=== PATIENT | male | born 1950 | race Caucasian/White ===

== ENCOUNTER → 2016-03-23 | Outpatient (CLI) | payer BC ==
[~2016-03-23] MED LIST: AVP150 PO; HYDR25TA5 PO
[2016-03-23 12:36] LABS: ESTIMATED AVERAGE GLUCOSE 137 mg/dl; HA1C FLAG Normal (Normal)
== END | disposition home or self-care (01) ==
LOC: C.LABBFT 09:59
PROVIDERS: ATTEND Internal Medicine
DX: E11.9 Type 2 diabetes mellitus without complications (principal)

== ENCOUNTER → 2017-03-30 | Outpatient (CLI) | payer OTHER ==
[2017-03-30 10:35] LABS: BASO % 0.2 %; BASO ABS # 0.01 K/uL (0-0.2); EOS % 3.2 %; HEMOGLOBIN 14.7 g/dL (14.0-18.0); IG# 0.01 K/uL (0.00-0.02); LYMPH % 41.2 %; LYMPH ABS # 2.56 K/uL (1.2-3.4); MEAN CELL VOLUME 88.1 fL (80-100); MEAN CORPUSCULAR HEMOGLOBIN 30.8 pg (25-34); MEAN PLATELET VOLUME 9.5 fL (7.4-10.4); MONO % 5.6 %; MONO ABS # 0.35 K/uL (0.11-0.59); NEUT % 49.6 %; NEUT ABS # 3.09 K/uL (1.4-6.5); PLATELET COUNT 189 K/uL (130-400); RED CELL DISTRIBUTION WIDTH CV 13.3 % (11.5-14.5); RED CELL DISTRIBUTION WIDTH SD 42.7 fL (36.4-46.3); WHITE BLOOD COUNT 6.22 K/uL (4.8-10.8)
[2017-03-30 11:18] LABS: BLOOD UREA NITROGEN 16 mg/dl (7-18); CALCIUM 8.9 mg/dl (8.5-10.1); CARBON DIOXIDE 26 mmol/L (21-32); CHOLESTEROL 125 mg/dl (0-200); CREATININE 0.92 mg/dl (0.60-1.40); GLUCOSE 135 mg/dl (70-99); POTASSIUM 3.9 mmol/L (3.5-5.1); SODIUM 139 mmol/L (136-145)
[2017-03-30 11:30] LABS: LDL CHOLESTEROL CALCULATED 60 mg/dl
== END | disposition home or self-care (01) ==
LOC: C.LAB1850 09:48
PROVIDERS: ATTEND Internal Medicine
DX: E11.9 Type 2 diabetes mellitus without complications (principal); I10 Essential (primary) hypertension

== ENCOUNTER → 2017-05-08 | Outpatient (CLI) | payer OTHER ==
--- NOTE | 2017-05-08 16:26 | DIAGNOSTIC IMAGING REPORT ---
MRI OF THE LUMBAR SPINE WITHOUT IV CONTRAST CLINICAL HISTORY: Chronic low back pain. Lumbar radiculopathy. COMPARISON STUDY: No priors. TECHNIQUE: MRI of the lumbar spine is performed utilizing various T1 and T2-weighted sequences in the axial and sagittal planes. IV contrast was not administered for this examination. FINDINGS: Lumbar spine: Vertebral body height and alignment are maintained throughout the lumbar spine. There is mild hyperlordosis. Small anterior osteophytes are seen throughout. The transverse and spinous processes are intact as visualized. Hemangiomas are seen in the bodies of L1, L2, and S1. No destructive osseous lesion is seen. Minimal endplate edema is seen at L5-S1. There is no evidence of spondylolysis. Intervertebral discs: Degenerative disc desiccation is seen throughout the lumbar spine. Only mild loss of height is seen at L3-L4 and L5-S1. Spinal cord: The partially visualized spinal cord is normal in morphology and signal intensity. The conus medullaris terminates at the level of L1. The nerve roots of the cauda equina are normal in morphology. These are tethered at the L3-L4 level. L1-L2: There is a small posterior disc bulge. There is no significant acquired compromise of the central canal at this level. There is bilateral subarticular stenosis. This may abut the exiting left L1 and the transiting bilateral L2 nerve roots. The neural foramina are patent. Facet arthropathy is of no consequence. L2-L3: There is broad-based posterior disc bulge with annular fissure. There is mild central canal stenosis at this level which is largely on a congenital basis. The minimum AP canal diameter measures 8 mm. There is bilateral subarticular stenosis. This may abut the exiting bilateral L2 and the transiting bilateral L3 nerve roots. The neural foramina are patent. Facet arthropathy is of no consequence. L3-L4: There is broad-based posterior disc bulge with annular fissure. In conjunction with hypertrophy of the ligamentum flavum, there is at least moderate central canal stenosis. The minimum AP canal diameter measures 6 mm. There is severe bilateral subarticular stenosis. The disc bulge likely impinges on the exiting bilateral L3 and the transiting bilateral L4 nerve roots. Facet arthropathy causes mild left greater than right neural foraminal stenosis. L4-L5: There is minimal posterior disc bulge. There is no significant acquired compromise of the central canal. There is bilateral subarticular stenosis. The disc bulge likely abuts the exiting right L4 and the transiting bilateral L5 nerve roots. Facet arthropathy causes mild left greater than right neural foraminal stenosis. L5-S1: There is a broad-based disc bulge eccentric to the left with annular fissure. This causes severe left-sided subarticular stenosis and impinges on the exiting left L5 nerve root. This also impinges on the transiting left S1 nerve root. Facet arthropathy is of no consequence. The neural foramina are patent. Mild facet joint effusions are identified. Sacrum: The visualized sacrum appears intact. Soft tissues: The paraspinous soft tissues are within normal limits. The partially imaged retroperitoneal structures are grossly normal but incompletely evaluated. IMPRESSION: 1. A large disc bulge eccentric to the left at L5-S1 impinges on the exiting left L5 and the transiting left S1 nerve roots. 2. There is at least moderate acquired compromise of the central canal at L3-L4 secondary to a posterior disc bulge. 3. Moderate lumbosacral spondylosis at additional levels, as above. See discussion for detailed level by level analysis. 4. No destructive bony process is identified. Dictated: 05/08/2017 3:24 PM Transcribed: 05/08/2017 4:26 PM [email or web address] Electronically signed by: Dawood Oakley M.D. 05/08/2017 4:27 PM Dictated Date/Time: 05/08/2017 3:24 PM
== END | disposition home or self-care (01) ==
LOC: C.MRIBC 14:07
PROVIDERS: ATTEND Pain Medicine Interventional Pain Medicine
DX: M51.36 Other intervertebral disc degeneration, lumbar region (principal); M51.27 Other intervertebral disc displacement, lumbosacral region; M47.817 Spondylosis without myelopathy or radiculopathy, lumbosacral region

== ENCOUNTER → 2017-07-21 | Outpatient (CLI) | payer BC ==
[2017-07-21 13:42] LABS: HEMOGLOBIN A1C 7.1 % (4.5-5.6)
== END | disposition home or self-care (01) ==
LOC: C.LAB1850 12:11
PROVIDERS: ATTEND Internal Medicine
DX: I10 Essential (primary) hypertension (principal)

== ENCOUNTER 2021-05-05 08:02 | Inpatient (IN) ==
--- NOTE | 2021-04-16 16:18 | PAT Medication Instructions ---
Medication Instructions Date of Service April 16, 2021 Home Medications Medication Instructions Recorded metformin 500 mg tablet,extended 1,000 mg PO BID #360 tab 12/29/20 release 24 hr jjlgequgilzu-cljpzksx-jtojrs tablet 1 tab PO QAM metformin 500 mg tablet,extended release 24 hr 1,000 mg PO BID atorvastatin 20 mg tablet 20 mg PO QAM empagliflozin 25 mg tablet 25 mg PO QAM hydrochlorothiazide 25 mg tablet 25 mg PO QAM irbesartan 300 mg tablet 300 mg PO QAM meloxicam 15 mg tablet 15 mg PO QAM tamsulosin 0.4 mg capsule 0.4 mg PO QAM ASK your surgeon for instructions meloxicam 15 mg tablet 15 mg PO QAM STOP taking 2 weeks before surgery potpnnugqpza-xpvzbmhk-eflnpy tablet 1 tab PO QAM DO NOT take the morning of surgery metformin 500 mg tablet,extended release 24 hr 1,000 mg PO BID empagliflozin 25 mg tablet 25 mg PO QAM hydrochlorothiazide 25 mg tablet 25 mg PO QAM irbesartan 300 mg tablet 300 mg PO QAM Take morning of surgery With a small sip of water, OTHERWISE NOTHING TO EAT OR DRINK AFTER MIDNIGHT: atorvastatin 20 mg tablet 20 mg PO QAM tamsulosin 0.4 mg capsule 0.4 mg PO QAM Take evening before surgery metformin 500 mg tablet,extended release 24 hr 1,000 mg PO BID Other Notes If you have any questions please call us at [phone] or [phone] or [phone] or [phone]
--- NOTE | 2021-04-21 11:20 | Anesthesiology Consultation ---
Date of Service April 21, 2021 Assessment & Plan (1) Encounter for pre-operative examination: Chart Review Chart Review: Acceptable Risk for Surgery (pending preop Covid testing results and surgeon ordered PCP clearance ) and Patient seen in Pre Admission Testing - Awaiting surgeon ordered PCP clearance (seen by PCP 04/20/21) (will fax preop testing to PCP for continuity of care) - Check BSG AM DOS Per PAT appt on 04/21/21, patient denies any recent travel or large group activities. No known Covid positive exposures or Covid related symptoms. Pt states he had positive home test approximately 1-2 months ago- had mild cold symptoms. Pt is vaccinated for Covid. Preop Covid testing scheduled 05/03/21= w ill await results. If preop Covid testing results positive- patient will need rescheduled. Educated on importance of self quarantining, social distancing and wearing mask in public for the patient one week prior to surgery and after Covid testing done Teaching & Discussion Pre-Anesthesia Teaching/Discussion Notes: Instructed NPO after midnight before surgery,except medications with 15 cc of water. Medication instructions provided according to the PAT guidelines. History Surgery Operation Date: 05/05/21 10:05 Proposed Procedures p L3-S1 Revision Decompression Fusion Spinal Cord Monitoring - Herman Torres, Height/Weight Height: 5 ft 9 in Weight: 123.9 kg Allergies Allergy/AdvReac Type Severity Reaction Status Date / Time ketamine AdvReac Intermediate anger Verified 04/20/21 11:04 issues Medications Home Medications Medication Instructions Recorded Confirmed Last Taken metformin 500 mg tablet,extended 1,000 mg PO BID #360 tab 12/29/20 04/20/21 Unknown release 24 hr atorvastatin 20 mg tablet 20 mg PO QAM 04/16/21 04/20/21 Unknown empagliflozin 25 mg tablet 25 mg PO QAM 04/16/21 04/20/21 Unknown hydrochlorothiazide 25 mg tablet 25 mg PO QAM 04/16/21 04/20/21 Unknown irbesartan 300 mg tablet 300 mg PO QAM 04/16/21 04/20/21 Unknown meloxicam 15 mg tablet 15 mg PO QAM 04/16/21 04/20/21 Unknown tamsulosin 0.4 mg capsule 0.4 mg PO QAM 04/16/21 04/20/21 Unknown liraglutide 0.6 mg/0.1 mL (18 mg/3 See Rx Instructions SUBCUT 04/20/21 04/20/21 Unknown mL) subcutaneous pen injector .COMPLEX #9 ml pen needle, diabetic 32 gauge x #100 ea 04/20/21 04/20/21 Unknown /" (Novofine 32) Past Medical History Medical History BPH (benign prostatic hyperplasia) Hypertriglyceridemia Lumbar back pain Metabolic syndrome Obesity, morbid, BMI 40.0-49.9 Primary hypertension Severe obstructive sleep apnea Wears BiPAP every night Type 2 diabetes mellitus with hyperglycemia, without long-term current use of insulin Does not check glucose Exercise / Class Metabolic Activity II 4-5 Yardwork/Stairs/Walk up hill (one flight of stairs - no chest pain or SOB ) Past Family History Family History Other No family history of adverse response to anesthesia Denies family history of Ovarian cancer Prostate cancer Breast cancer Lung cancer Colorectal cancer Past Surgical History Surgical History H/O elbow surgery RT H/O hernia repair H/O neck surgery HARDWARD H/O shoulder surgery RT/LEFT History of back surgery ? DETAILS History of colonoscopy History of tonsillectomy History of total knee replacement RT/LEFT Past Anesthesia History No Hx of Anesthesia Complications and No Family Hx of Anesthesia Complications History of PONV No Hx of PONV and No Hx of Motion Sickness Social History Smoking Status: Current some day smoker tobacco type: cigars (currently- occasionally ) Do You Dip or Chew Tobacco: No Smoking End Date: Quit smoking cigarettes "years ago" Hx Alcohol Use: Yes Alcohol type: hard liquor alcohol intake frequency: a few times a month Hx Substance Use: No substance use type: does not use Review of Systems Patient denies chest pain, shortness of breath, dyspnea on exertion, reflux, cou gh, wheezing, palpitations. No hx of seizures, stroke, NM. No hx of blood clots or blood transfusions Physical Exam Vital Signs VITALS BP 112/67 P 69 TEMP 98.4 SP02 97% RESP 16 Constitutional no acute distress ENMT Mouth: no TMJ clicking Thyromental Distance: > or= 3.5 Finger Breadths (4.0) Mallampati Class: I (smaller airway ) Mouth / Teeth: 1. Missing 2. Missing 3. Missing Missing most teeth/broken Neck + facial hair (advised patient to trim/shave [place] ); neck extension not limited Respiratory normal respiratory effort; no respiratory distress Auscultation: lungs clear to auscultation bilaterally; no wheezes Cardiovascular Rate/Rhythm: regular rate and regular rhythm Heart Sounds: no murmur Vessels: no carotid bruit Musculoskeletal Spine: + pain with cervical ROM (mild stiffness ) Extremities: extremities normal to inspection Psychiatric Orientation: alert Lab Results Anesthesia Preop Results Results Anesthesia Widget: WBC 7.07 K/uL (4.8-10.8) 04/21/21 Hgb 16.2 g/dL (14.0-18.0) 04/21/21 Hct 47.1 % (42-52) 04/21/21 Plt 213 K/uL (130-400) 04/21/21 Na 136 mmol/L (136-145) 04/21/21 K 3.7 mmol/L (3.5-5.1) 04/21/21 Cl 101 mmol/L (98-107) 04/21/21 CO2 27 mmol/L (21-32) 04/21/21 BUN 21 mg/dl (6-23) 04/21/21 Creat 0.88 mg/dl (0.6-1.4) 04/21/21 Glucose Level 132 mg/dl (70-99(Fasting)) H 04/21/21 PT 10.9 Seconds (9.0-12.0) 04/21/21 PTT 29.8 Seconds (21.0-31.0) 04/21/21 INR 1.1 (0.9-1.1) 04/21/21 HA1c 6.8 % (4.5-5.6) H 04/21/21 Urine Color Yellow 04/21/21 Urine Appearance Clear (Clear) 04/21/21 Urine pH 8.0 (4.5-7.5) H 04/21/21 Urine Specific [place] 1.023 (1.000-1.030) 04/21/21 Urine Protein Negative (Negative) 04/21/21 Urine Glucose (UA) 3+ (Negative) H 04/21/21 Urine Ketones Negative (Negative) 04/21/21 Urine Blood Negative (Negative) 04/21/21 Urine Nitrite Negative (Negative) 04/21/21 Urine Bilirubin Negative (Negative) 04/21/21 Urine Urobilinogen Negative (Negative) 04/21/21 Urine Leukocyte Esterase Negative (Negative) 04/21/21 Blood Type AB Positive 04/21/21 Antibody Screen NEGATIVE 04/21/21 Testing Electrocardiogram Date: 04/21/21 Sinus rhythm with first-degree AV block at 70 bpm. Possible inferior infarct, age undetermined. When compared to EKG from 07/21/2015PR interval has increased. Chest X-Ray Date: 04/21/21 Findings: + NAD
[~2021-05-05 08:02] MED LIST changes: +ACETAMINOPHEN 500 MG TAB PO SCH; -AVP150 PO; +CeleBREX 200 MG CAP PO SCH; +GABAPENTIN 300 MG CAP PO SCH; -HYDR25TA5 PO; +LR 15ML/HR IV SCH
[2021-05-05] MEDS ORDERED: fentaNYL citrate 100 MCG/2 ML VIAL ONE (08:31)
[2021-05-05] MEDS ORDERED: MIDAZOLAM HCL 1 MG/ML 2ML VIAL ONE (08:31)
--- NOTE | 2021-05-05 10:00 | History & Physical Bridge Note ---
Date of Service May 05, 2021 History & Physical Bridge Note I have examined the patient, reviewed the History & Physical and in the interval since the performance of the History & Physical I have noted the following changes of clinical significance: no changes noted
--- NOTE | 2021-05-05 10:01 | History & Physical Report ---
Date of Service May 05, 2021 Assessment & Plan (1) Neurogenic claudication due to lumbar spinal stenosis: Plan: L3-S1 revision decompression and fusion History of Present Illness Chief Complaint: Back and bilateral leg pain Primary Care Provider: Fara Youssef MD This is a 71-year-old male who presents with current persistent back and bilateral leg pain. Failing course of nonoperative care is here for surgical invention. Allergies Allergy/AdvReac Type Severity Reaction Status Date / Time ketamine AdvReac Intermediate anger Verified 05/05/21 08:15 issues Home Medications Medication Instructions Recorded Confirmed Type metformin 500 mg tablet,extended 1,000 mg PO BID #360 tab 12/29/20 05/05/21 Rx release 24 hr atorvastatin 20 mg tablet 20 mg PO QAM 04/16/21 05/05/21 History empagliflozin 25 mg tablet 25 mg PO QAM 04/16/21 05/05/21 History hydrochlorothiazide 25 mg tablet 25 mg PO QAM 04/16/21 05/05/21 History irbesartan 300 mg tablet 300 mg PO QAM 04/16/21 05/05/21 History meloxicam 15 mg tablet 15 mg PO QAM 04/16/21 05/05/21 History tamsulosin 0.4 mg capsule 0.4 mg PO QAM 04/16/21 05/05/21 History liraglutide 0.6 mg/0.1 mL (18 mg/3 See Rx Instructions SUBCUT 04/20/21 05/05/21 Rx mL) subcutaneous pen injector .COMPLEX #9 ml pen needle, diabetic 32 gauge x #100 ea 04/20/21 04/20/21 Rx 1/4" (Novofine 32) Past Med/Surg History Medical History BPH (benign prostatic hyperplasia) Hypertriglyceridemia Lumbar back pain Metabolic syndrome Obesity, morbid, BMI 40.0-49.9 Primary hypertension Severe obstructive sleep apnea Wears BiPAP every night Type 2 diabetes mellitus with hyperglycemia, without long-term current use of insulin Does not check glucose Surgical History H/O elbow surgery RT H/O hernia repair H/O neck surgery HARDWARD H/O shoulder surgery RT/LEFT History of back surgery ? DETAILS History of colonoscopy History of tonsillectomy History of total knee replacement RT/LEFT Family History Other No family history of adverse response to anesthesia Denies family history of Ovarian cancer Prostate cancer Breast cancer Lung cancer Colorectal cancer Social History Smoking Status: Current some day smoker Smoking End Date: Quit smoking cigarettes "years ago"; Second Hand Exposure: No; Do You Dip or Chew Tobacco: No; Tobacco Cessation Education Requested by Patient: No Hx Alcohol Use: Yes Alcohol type: hard liquor Hx Substance Use: No Preferred Language: Jordanian Communication Ability: Effective Drawing Operator Required: No Beliefs That Will Affect Care: None marital status: Current Living Situation: Spouse Feels Safe at Home: Yes Safety Concerns: Feels Safe At This Time Dental Care, Regularly: Yes Physical Activity Frequency: 3-4 Times per Week Seatbelt Use: always Sunscreen Use: Yes Assistive Devices: BiPap and Glasses Physical Exam Physical Exam: Patient is alert and oriented Heart regular rate and rhythm Lungs clear Results & Data ([place]) Vital Signs (Past 12 Hours) Vital Signs Temp Pulse Resp BP Pulse Ox 05/05/21 08:18 37 C 75 18 144/85 H 97
[2021-05-05] MEDS ORDERED: EPINEPHrine INJ 1 MG/ML AMP ONE (10:18)
[2021-05-05] MEDS ORDERED: BUPIVACAINE 0.5 % 5 MG/1 ML MPF 30ML VIAL ONE (10:18)
[2021-05-05] MEDS ORDERED: ceFAZolin 330 MG/ML 1 GM VIAL ONE (10:18)
[2021-05-05] MEDS ORDERED: HYDROmorphone INJ 2 MG/ML SYR/VIAL ONE (11:10)
[2021-05-05] MEDS ORDERED: LIDOCAINE 2% 2 ML VIAL/AMP(20MG/ML) INFIL ONE (11:13)
[2021-05-05] MEDS ORDERED: ONDANSETRON INJ 2 MG/ML 2 ML VIAL ONE (11:13)
[2021-05-05] MEDS ORDERED: ROCURONIUM BROMIDE 10 MG/ML 5 ML VIAL IV ONE (11:13)
[2021-05-05] MEDS ORDERED: GLYCOPYRROLATE 0.2 MG/ML VIAL ONE (11:13)
[2021-05-05] MEDS ORDERED: NEOSTIGMINE METHYLSULFATE 1 MG/ML 10ML VIAL ONE (11:13)
[2021-05-05] MEDS ORDERED: SUCCINYLCHOLINE CHLORIDE 20 MG/ML 10 ML VIAL IV ONE (11:13)
[2021-05-05] MEDS ORDERED: PROPOFOL IV EMULSION 10 MG/ML 20 ML VIAL IV ONE (11:13)
[2021-05-05] MEDS ORDERED: PHENYLEPHRINE 100MCG/ML 5ML SYR ONE (11:13)
[2021-05-05] MEDS ORDERED: DEXAMETHASONE SOD INJ 4 MG/ML VIAL ONE (11:13)
[2021-05-05] MEDS ORDERED: LARYING-O-JET KIT (LTA) ONE (11:13)
[2021-05-05] MEDS ORDERED: ePHEDrine sulfate 50 MG/ML AMP ONE (11:13)
[2021-05-05] MEDS ORDERED: FLOSEAL HEMOSTATIC MATRIX 10ML TOP ONE ×2 (11:25→11:41)
[2021-05-05] MEDS ORDERED: ALBUMIN HUMAN 5% 12.5 GM/250 ML VIAL IV ONE ×2 (12:30→13:32)
[2021-05-05 12:50] LABS: iSTAT Creatinine 0.8 mg/dl (0.6-1.3); iSTAT Hemoglobin 11.9 g/dl (14.0-18.0); iSTAT Ionized Calcium 1.26 mmol/l (1.12-1.32); iSTAT Potassium 4.2 mmol/L (3.3-5.0)
--- NOTE | 2021-05-05 13:44 | Operative Report ---
Post Operative Report Pre & Post Diagnosis Operation Date: 05/05/21 09:35 Pre-Op Diagnosis: Neurogenic claudication due to lumbar spinal stenosis, L3-S1, Spondylolisthesis L5-S1 Morbid obesity Post-Op Diagnosis: Same I identified the patient and participated in the time-out.: Yes Procedure Operation Date: 05/05/21 09:35 Actual Procedures #1 revision decompression with bilateral medial facetectomies and foraminotomies L2-L3, L3-L4, L4-5 and L5-S1. #2 posterior spinal fusion L3-S1. #3 placement posterior segmental instrumentation L3-S1. #4 interbody fusion L3-L4, L4-5 and L5-S1. #5 placement of titanium cage 13 x 26 mm at L3-L4, 15 x 26 mm at L4-5 and 12 x 26 mm at L5-S1. #6 placement locally harvested morselized autograft in the posterior gutters. #7 placement of infuse collagen sponge, master graft in the posterior lateral gutters and I factor interbody space. Surgeon Herman Torres, DO Dog Handler Christiane Hernandez Estimated Blood Loss 900 Findings See Below Patient is 5 foot 9 weighing over 123 kg with a BMI in excess of 40. The patient's body habitus did had significant technical difficulty requiring our deepest retractors longus instruments in order to perform his procedure. This had at least 50% increase to the operative time. Specimens None Indications This is a 71-year-old male presents above-mentioned diagnosis after failing since course of nonoperative care is here for surgical invention. Description of Procedure Patient was met with identified informed consent obtained. Patient was then taken to the operative suite underwent a patient placed in a prone position the [place] table top [place]y frame. All bony prominences well-padded eyes inspected to ensure no external pressure placed upon the. This point the lumbar spine was prepped and draped in normal sterile fashion. Sharp dissection with the assistance of Bovie cautery was performed down to and exposing the lamina and transverse processes of L3-L4-L5 and sacral ala bilaterally. From a caudal cephalad fashion revision complete laminectomy of L5 L4 L3 and partial anatomy of L2 was performed including bilateral medial facetectomies and foraminotomies addressing severe spinal stenosis. Pedicle screws then placed in L3-L4-L5 and S1 levels bilaterally with assistance of fluoroscopy and appropriate sized joe placed. By way of a transforaminal approach on the right a complete discectomy of L5-S1 was performed endplates curetted to subcortically bone and a 12 x 26 mm titanium cage filled I factor tapped in position. Then proceeded L4-L5 again by way of a transforaminal portion right complete discectomy performed endplates curetted to subcortically bone and a 15 x 26 mm titanium cage filled I factor tapped position. Lastly presented to L3-L4 and again by way of a transforaminal portion right complete discectomy performed endplates curetted to subcortically bone and a 13 x 26 mm titanium cage filled I factor tapped in position. The rods were then compressed locked in final position bilaterally. The transverse processes of L3-L4-L5 and sacral ala burred to subcortical bleeding bone. Infuse collagen sponge mass graft local autograft was placed in the posterior gutters. 15 round SHANE drain inserted. The incision was then closed with 1 Vi cryl in the fascia 2-0 Vicryl subcutaneously and 4 Monocryl for final skin closure. Steri-Strip Steri-Strips placed. Patient waken taken to PACU stable condition. Please note spinal cord monitoring was utilized at the procedure no changes noted. Lastly Christiane Hernandez was present at the entire surgeon while the patient positioning complex portions of the surgery and final skin closure. I attest to the content of the Intraoperative Record and any orders documented therein. Any exceptions are noted below.
--- NOTE | 2021-05-05 13:54 | Fluoroscopy Report ---
[place] lumbar spine 2-3V CLINICAL HISTORY: L3-S1 DECOMPRESSION AND FUSION AND INTERBODY COMPARISON STUDY: Lumbar spine MRI March 08, 2021. FLUOROSCOPY TIME: 36 seconds. FLUOROSCOPIC IMAGES: 3 FINDINGS: Fluoroscopy was provided during L3-L4, L4-L5 and L5-S1 discectomies with interbody spacer p lacement. Posterior decompression with bilateral pedicle screw fusion from L3 through S1 is noted. Th ere are interconnecting rods. Hardware is intact. IMPRESSION: Fluoroscopy provided during L3-S1 discectomies, posterior decompression and bilateral pe dicle screw fusion. ACT 112: Negative or not required by law. Electronically signed by: Forrest Hidalgo M.D. 05/05/2021 1:53 PM
[2021-05-05] MEDS ORDERED: ATROPINE SULFATE 0.1 MG/ML 10ML SYR IV PRN (14:49)
[2021-05-05] MEDS ORDERED: fentaNYL citrate 100 MCG/2 ML VIAL IV PRN (14:49)
[2021-05-05] MEDS ORDERED: ONDANSETRON INJ 2 MG/ML 2 ML VIAL IV PRN ×2 (14:49→17:25)
[2021-05-05] MEDS ORDERED: LABETALOL HCL IV 5 MG/ML 20ML IV PRN (14:49)
[2021-05-05] MEDS ORDERED: HYDROmorphone INJ 1 MG/ML SYRINGE IV PRN (14:49)
[2021-05-05] MEDS ORDERED: PROMETHAZINE HCL 12.5 MG in SODIUM CHLORIDE 0.9% 50 ML IV PRN ×2 (14:49→17:25)
[2021-05-05] MEDS ORDERED: NALOXONE HCL 0.4 MG/1 ML VIAL/CARP IV PRN ×2 (14:49→17:25)
[2021-05-05] MEDS ORDERED: FLUMAZENIL 0.1 MG/1 ML 10 ML VIAL IV PRN (14:49)
[2021-05-05] MEDS ORDERED: ePHEDrine sulfate 50 MG/ML AMP IV PRN (14:49)
[2021-05-05] MEDS ORDERED: PHARMACY GLYCEMIC MGMT CONSULT PRN (17:25)
[2021-05-05] MEDS ORDERED: ACETAMINOPHEN 500 MG TAB PO PRN (17:25)
[2021-05-05] MEDS ORDERED: ACETAMINOPHEN 1,000 MG/100 ML VIAL IV PRN (17:25)
[2021-05-05] MEDS ORDERED: LORazepam 0.5 MG TAB PO PRN (17:25)
[2021-05-05] MEDS ORDERED: oxyCODONE HCL IR 5 MG TAB (IMMEDIATE RELEASE) PO PRN (17:25)
[2021-05-05] MEDS ORDERED: DO NOT ADMINISTER PNEUMOCOCCAL VACCINE PRN (17:25)
[2021-05-05] MEDS ORDERED: FAMOTIDINE 20 MG TAB PO PRN (17:25)
[2021-05-05] MEDS ORDERED: MAGNESIUM HYDROXIDE SUSP 30 ML UDC PO PRN (17:25)
[2021-05-05] MEDS ORDERED: DO NOT ADMINISTER FLU VACCINE PRN (17:25)
[2021-05-05] MEDS ORDERED: HYDROmorphone INJ 0.5 MG/0.5 ML SYR IV PRN (17:25)
[2021-05-05] MEDS ORDERED: LORazepam 2 MG/1 ML VIAL IV PRN (17:25)
[2021-05-05] MEDS ORDERED: bisacodyL 10 MG SUPP PR PRN (17:25)
[2021-05-05] MEDS ORDERED: METOCLOPRAMIDE HCL INJ 5 MG/ML 2 ML VIAL IV PRN (17:25)
[2021-05-05] MEDS ORDERED: diphenhydrAMINE Capsule 25 MG CAP PO PRN (17:25)
[2021-05-05] MEDS ORDERED: ALUMINUM/MAGNESIUM SUSP 30 ML UDC PO PRN (17:25)
[2021-05-05] MEDS ORDERED: SOD PHOSPHATE/SOD BIPHOSPHATE ENEMA 132 ML BTL PR PRN (17:25)
[2021-05-05] MEDS ORDERED: ONDANSETRON 4 MG OD TAB PO PRN (17:25)
[2021-05-05] MEDS ORDERED: hydrOXYzine HCl 25 MG TAB PO PRN (17:25)
[2021-05-05] MEDS ORDERED: traMADol HCL 50 MG TABLET PO PRN (17:25)
--- NOTE | 2021-05-05 17:27 | Anesthesiology Progress Note ---
Date of Service May 05, 2021 Anesthesia Post Procedure Vital Signs Vital Signs: Temp Pulse Pulse Resp BP Pulse Ox 05/05/21 17:15 81 18 134/79 98 05/05/21 16:45 80 24 141/99 H 99 05/05/21 16:15 79 17 142/94 H 96 05/05/21 15:45 72 13 134/85 95 05/05/21 15:30 64 16 146/66 H 97 05/05/21 15:20 62 16 124/71 96 05/05/21 15:05 60 13 127/67 98 05/05/21 14:55 65 21 127/67 95 05/05/21 14:45 60 12 121/67 95 05/05/21 14:35 36 C L 61 16 124/66 97 05/05/21 14:25 58 L 23 129/74 97 05/05/21 14:15 62 18 120/71 100 05/05/21 14:05 52 L 12 117/66 100 05/05/21 13:58 36 C L 53 L 16 108/73 100 05/05/21 08:18 37 C 75 18 144/85 H 97 Pain Intensity Back: Pain Intensity: 4 Transfer of Care Handoff Completed per policy Notes Mental Status: alert / awake / arousable Patient Amnestic to Procedure: Yes Nausea / Vomiting: adequately controlled Pain: adequately controlled Airway Patency, RR, SpO2: stable & adequate BP & HR: stable & adequate Hydration State: stable & adequate Anesthetic Complications: no major complications apparent
[2021-05-05] MEDS: SODIUM CHLORIDE 0.9% 1000ML 1,000 ML IV SCH (17:55)
[2021-05-05] MEDS ORDERED: INSULIN HUMAN NPH SC ONE (18:15)
--- NOTE | 2021-05-05 18:49 | Hospitalist Consultation ---
Date of Consultation May 05, 2021 Assessment & Plan (1) Neurogenic claudication due to lumbar spinal stenosis: Max Licona is a 71yo male with PMHx significant for severe DARRIUS, T2DM, HTN, hypertriglyceridemia, BPH and obesity who was admitted to [facility] on 05/05/2021 for L3-S1 revision decompression/fusion due to severe stenosis and associated radiculopathy. We were consulted for med management. S/p L3-S1 Revision Decompression/Fusion Doing well overall post-operatively. Pain well controlled with current regimen. Stable. - agree with graduated pain medication regimen: Tylenol/Tramadol/Uehling/Dilaudid - currently on clear liquid diet - can continue NSS @150cc/hr for now - Ancef IV for perioperative ppx - Decadron 6mg IV daily x3 days for radicular pain - PRN Maalox/Pepcid while on steroids - agree with PRN anxiolytics and anti-emetics currently in place (QTc 406ms on 04/21/21) - agree with PRN constipation regimen - encouraged incentive spirometry T2DM A1c 9.6 (01/2021) --> 6.8 (04/2021). - SSI and Lantus while hospitalized - glycemic pharmacy consult previously placed - will defer ongoing management to them Severe DARRIUS Patient uses BiPAP nightly. - patient will use home BiPAP Other Chronic Medical Conditions Hypertriglyceridemia: continue home Atorvastatin 20mg PO QAM BPH: continue home Flomax HTN: Normotensive post-operatively. Continue home HCTZ 25mg PO QAM and Irbesa rtan 300mg PO QAM FEN/GI: DM2/clear liquid diet, NSS @150cc/hr DVT Prophylaxis: SCDs, chemoppx contraindicated given surgery early today Code Status: ful code Disposition: med/surg Thank you for this consult. Please refer to Dr. Navarro's addendum for additional documentation. We will continue to follow along with you. (2) Severe obstructive sleep apnea: (3) BPH (benign prostatic hyperplasia): (4) Status post cervical spinal fusion: (5) Type 2 diabetes mellitus with hyperglycemia, without long-term current use of insulin: (6) Primary hypertension: (7) Hypertriglyceridemia: (8) Osteoarthritis: (9) Obesity, morbid, BMI 40.0-49.9: Supervising Physician Co-Signing Physician Notes I personally saw and examined the patient. I verified all echevarria points and agree with resident physician Dr Dimitri Rojas with the following exceptions and/or additions: 71 year old male here for elective revision lumbar decompression and posterior spinal fusion performed today by Dr Torres. Doing well post operatively. O/E HS 1+2, no murmurs, Chest CTAB, Abdo SNT, dorsi/plantarflexion 1st MT b/l equal, normal sensation distal LE intact A/P Pain, VTE management oer primary orthopedic team, post op labs in AM HTN - Continue his usual medications as above T2DM - HbA1C 6.8. No hypoglycemic episodes. pharmacy on consult for glycemic control with insulin. History of Present Illness Reason for Consultation: med management Requesting Physician: Dr. Trores Attending Physician: Herman Torres, DO History of Present Illness Max Licona is a 71yo male with PMHx significant for severe DARRIUS, T2DM, HTN, hypertriglyceridemia, BPH and obesity who was admitted to [facility] on 05/05/2021 for L3-S1 revision decompression due to severe stenosis and associated radiculopathy. We were consulted for med management post-operatively. Patient reports doing well post-operatively. Tolerating clears without N/V and pain is minimal at this point in time. Allergies Allergy/AdvReac Type Severity Reaction Status Date / Time ketamine AdvReac Intermediate anger Verified 05/05/21 08:15 issues Home Medications Medication Instructions Recorded Confirmed Type metformin 500 mg tablet,extended 1,000 mg PO BID #360 tab 12/29/20 05/05/21 Rx release 24 hr atorvastatin 20 mg tablet 20 mg PO QAM 04/16/21 05/05/21 History empagliflozin 25 mg tablet 25 mg PO QAM 04/16/21 05/05/21 History hydrochlorothiazide 25 mg tablet 25 mg PO QAM 04/16/21 05/05/21 History irbesartan 300 mg tablet 300 mg PO QAM 04/16/21 05/05/21 History meloxicam 15 mg tablet 15 mg PO QAM 04/16/21 05/05/21 History tamsulosin 0.4 mg capsule 0.4 mg PO QAM 04/16/21 05/05/21 History liraglutide 0.6 mg/0.1 mL (18 mg/3 See Rx Instructions SUBCUT 04/20/21 05/05/21 Rx mL) subcutaneous pen injector .COMPLEX #9 ml pen needle, diabetic 32 gauge x #100 ea 04/20/21 04/20/21 Rx 1/4" (Novofine 32) oxycodone 5 mg tablet 5 mg PO Q6H PRN #30 tab 05/05/21 Rx tramadol 50 mg tablet 50 mg PO Q6H PRN #30 tab 05/05/21 Rx Patient History Medical History BPH (benign prostatic hyperplasia) Hypertriglyceridemia Lumbar back pain Metabolic syndrome Obesity, morbid, BMI 40.0-49.9 Primary hypertension Severe obstructive sleep apnea Wears BiPAP every night Type 2 diabetes mellitus with hyperglycemia, without long-term current use of insulin Does not check glucose Surgical History H/O elbow surgery RT H/O hernia repair H/O neck surgery [place] H/O shoulder surgery RT/LEFT History of back surgery ? DETAILS History of colonoscopy History of tonsillectomy History of total knee replacement RT/LEFT Family History Other No family history of adverse response to anesthesia Denies family history of Ovarian cancer Prostate cancer Breast cancer Lung cancer Colorectal cancer Social History Smoking Status: Current some day smoker Smoking End Date: Quit smoking cigarettes "years ago"; Second Hand Exposure: No; Do You Dip or Chew Tobacco: No; Tobacco Cessation Education Requested by Patient: No Hx Alcohol Use: Yes Alcohol type: hard liquor Hx Substance Use: No Preferred Language: Greenlandic Communication Ability: Effective Screen Printing Paster Required: No Beliefs That Will Affect Care: None marital status: Current Living Situation: Spouse Feels Safe at Home: Yes Safety Concerns: Feels Safe At This Time Dental Care, Regularly: Yes Physical Activity Frequency: 3-4 Times per Week Seatbelt Use: always Sunscreen Use: Yes Assistive Devices: Glasses and Walker Review of Systems Review of Systems: All systems reviewed & are unremarkable except as noted in HPI & below Physical Exam Physical Exam: General: A&Ox3. NAD. Cooperative. Obese. HEENT: Atraumatic, normocephalic. Pulm: CTAB A&P. -wheezes, -rales, -rhonchi. Symmetrical chest rise. No increase work of breathing. No respiratory distress. Cardiac: RRR, -mrg. Radial pulses intact and symmetrical. Abdominal: soft, non-tender, non-distended, BS x 4 Skin: warm, dry, no rash Results & Data Results & Data ([facility]) Vital Signs (Past 12 Hours) Vital Signs Temp Pulse Pulse Resp BP Pulse Ox 05/05/21 18:10 36.9 C 70 16 144/68 H 94 05/05/21 17:15 81 18 134/79 98 05/05/21 16:45 80 24 141/99 H 99 05/05/21 16:15 79 17 142/94 H 96 05/05/21 15:45 72 13 134/85 95 05/05/21 15:30 64 16 146/66 H 97 05/05/21 15:20 62 16 124/71 96 05/05/21 15:05 60 13 127/67 98 05/05/21 14:55 65 21 127/67 95 05/05/21 14:45 60 12 121/67 95 05/05/21 14:35 36 C L 61 16 124/66 97 05/05/21 14:25 58 L 23 129/74 97 05/05/21 14:15 62 18 120/71 100 05/05/21 14:05 52 L 12 117/66 100 05/05/21 13:58 36 C L 53 L 16 108/73 100 05/05/21 08:18 37 C 75 18 144/85 H 97 Resident Activity Tracking Resident Involvement: Resident Care Provided Care Provided: Adult Hospital Medicine (1) BPH (benign prostatic hyperplasia) Lower urinary tract symptom detail: nocturia Lower urinary tract symptom presence: symptoms present Qualified Code(s): N40.1 - Benign prostatic hyperplasia with lower urinary tract symptoms; R35.1 - Nocturia
[2021-05-05] MEDS: INSULIN ASPART PER UNIT SC SCH ×2 (18:55→20:59)
[2021-05-05] MEDS: DOCUSATE SODIUM/SENNA 50/8.6MG TAB PO SCH (19:55)
[2021-05-05] MEDS: HYDROmorphone INJ 1 MG/ML SYRINGE IV PRN (20:54)
[2021-05-05] MEDS: ceFAZolin 2000MG 2,000 MG/15 ML SYR IV SCH (23:07)
[2021-05-06] MEDS: SODIUM CHLORIDE 0.9% 1000ML 1,000 ML IV SCH ×2 (00:03→06:17)
[2021-05-06] MEDS: HYDROmorphone INJ 1 MG/ML SYRINGE IV PRN ×6 (00:03→23:09)
[2021-05-06] MEDS: INSULIN ASPART PER UNIT SC SCH ×6 (00:43→20:50)
[2021-05-06] MEDS: POLYETHYLENE (MIRALAX) 17 GM PACK PO SCH ×4 (05:07→23:09)
[2021-05-06] MEDS: ceFAZolin 2000MG 2,000 MG/15 ML SYR IV SCH (06:17)
[2021-05-06 06:39] LABS: Basophils # (auto) 0.01 K/uL (0-0.2); Basophils % (auto) 0.1 %; Eosinophils # (auto) 0.05 K/uL (0-0.5); Eosinophils % (auto) 0.4 %; Hematocrit (blood only) 32.7 % (42-52); Hemoglobin 11.2 g/dL (14.0-18.0); Immature Granulocytes # (auto) 0.04 K/uL (0.00-0.02); Immature Granulocytes % (auto) 0.3 %; Lymphocytes # (auto) 2.15 K/uL (1.2-3.4); Lymphocytes % (auto) 18.1 %; Mean Corpuscular Hemoglobin 30.4 pg (25-34); Mean Corpuscular Hgb Conc 34.3 g/dL (32-36); Mean Corpuscular Volume 88.9 fL (80-100); Mean Platelet Volume 9.8 fL (7.4-10.4); Monocytes # (auto) 0.72 K/uL (0.11-0.59); Monocytes % (auto) 6.1 %; Platelet Count 190 K/uL (130-400); RDW Coefficient of Variation 13.5 % (11.5-14.5); RDW Standard Deviation 43.4 fL (36.4-46.3); Red Blood Count 3.68 M/uL (4.7-6.1); White Blood Count 11.87 K/uL (4.8-10.8)
[2021-05-06 07:09] LABS: BUN Creatinine Ratio 18.7 (10-20); Calcium 8.1 mg/dl (8.5-10.1); Creatinine Clr Calc Pharmacy 120.9 ml/min; Est GFR (African American) 108.5 ml/min; Est GFR (Non-African American) 93.6 ml/min; Magnesium 1.8 mg/dl (1.7-2.4); Potassium 3.9 mmol/L (3.5-5.1)
[2021-05-06] MEDS: IRBESARTAN 150 MG TAB PO SCH (08:38)
[2021-05-06] MEDS: ATORVASTATIN 20 MG TAB PO SCH (08:38)
[2021-05-06] MEDS: dexAMETHasone 6 MG in SYRINGE 0 ML IV SCH (08:39)
[2021-05-06] MEDS: hydroCHLOROthiazide 25 MG TAB PO SCH (08:39)
[2021-05-06] MEDS: TAMSULOSIN HCL 0.4 MG CAP PO SCH (08:40)
[2021-05-06] MEDS ORDERED: INSULIN HUMAN NPH SC SCH (09:00)
--- NOTE | 2021-05-06 09:37 | Orthopedic Progress Note ---
Date of Service May 06, 2021 Assessment & Plan (1) Neurogenic claudication due to lumbar spinal stenosis: Plan: Patient will start with physical therapy today. Continue with pain control. DVT prophylaxis is in the form teds and SCDs. Maintain SHANE drain. Anticipate discharge home later on in the weekend. Admission and Anticipated Discharge Date Admission Date: May 05, 2021 Frantz Santana is postoperative day 1 L3-S1 decompression instrumented fusion by Dr. Torres. He has had an uneventful evening. H&H are 11.2 and 32.7 respectively. SHANE drain output last shift was 150 cc. States lower extremity symptoms are greatly improved. Review of Systems Review of Systems: All systems reviewed & are unremarkable except as noted in HPI & below Physical Exam Physical Exam: Alert and oriented x3 Sitting in a chair in no acute distress eating breakfast calves are soft nontender bilateral lower extremities Strength is intact bilateral lower extremities Lumbar dressing is clean dry intact with functioning SHANE drain Results & Data ([facility]) Vital Signs (Past 12 Hours) Vital Signs Temp Pulse Resp BP Pulse Ox 05/06/21 08:37 74 159/77 H 05/06/21 07:37 36.4 C L 72 16 134/85 96 05/06/21 02:14 36.4 C L 65 16 143/86 H 97 05/05/21 23:15 36.5 C 71 22 123/71 94
--- NOTE | 2021-05-06 12:11 | Billing Data ---
Date of Service May 05, 2021 Coding Level of Care Code 76667 Inpt Consult Level 3
--- NOTE | 2021-05-06 13:14 | Hospitalist Progress Note ---
Date of Service May 06, 2021 Assessment & Plan (1) Neurogenic claudication due to lumbar spinal stenosis: Plan: Max Licona is a 71yo male with PMHx significant for severe DARRIUS, T2DM, HTN, hypertriglyceridemia, BPH and obesity who was admitted to [facility] on 05/05/2021 for L3-S1 revision decompression/fusion due to severe stenosis and associated radiculopathy. We were consulted for med management. - S/P L3-S1 revision decompression/fusion on 05/05 - Doing well post-operatively; pain is present but tolerable - Reports [place] does better for him so will switch the Oxy over -- was only using Dilaudid and will try and use more oral options with IV for breakthrough -- Continue pain/bowel regimen - Decadron 6 mg IV daily x 3 days - Encourage incentive spirometry; PT/OT - Surgical management per primary team (2) Acute blood loss anemia: Plan: Acute blood loss and hemodilution related anemia - Hgb trended down from 16.2 to 11.2 on AM labs; EBL 900 mL (3) Type 2 diabetes mellitus with hyperglycemia, without long-term current use of insulin: Plan: - A1c currently down to 6.8 - Reports he is to start Trulicity - he just received this a couple days ago and hasn't started this - Glycemic pharmacy following (4) Severe obstructive sleep apnea: Plan: - BiPAP nightly (5) BPH (benign prostatic hyperplasia): Plan: - Continue Flomax (6) Primary hypertension: Plan: - STABLE - Continue HCTZ and Ibesartan (7) Hypertriglyceridemia: Plan: - Continue Atorvastatin 20 mg daily (8) Obesity, morbid, BMI 40.0-49.9: Plan: - Noted Plan: Disposition per primary team; plan to continue home medications on D/C. Hospitalist service will continue to monitor Admission and Anticipated Discharge Date Admission Date: May 05, 2021 Results & Data Results & Data ([facility]) Vital Signs (Past 12 Hours) Vital Signs Temp Pulse Resp BP Pulse Ox 05/06/21 11:27 36.6 C 74 16 139/63 97 05/06/21 08:37 74 159/77 H 05/06/21 07:37 36.4 C L 72 16 134/85 96 05/06/21 02:14 36.4 C L 65 16 143/86 H 97 PG Care Time/CCT Total # of Minutes Spent Total Time Spent with Patient: Total time spent is greater than 50% in coordination of care (as documented) at patient's floor/unit and/or counseling patient: Coding Level of Care Code 29644 Inpt Consult Level 2 Diagnoses Neurogenic claudication due to lumbar spinal stenosis M48.062 Severe obstructive sleep apnea G47.33 BPH (benign prostatic hyperplasia) N40.1; R35.1 Lower urinary tract symptom presence: symptoms present Lower urinary tract symptom detail: nocturia Type 2 diabetes mellitus with hyperglycemia, without long-term current use of insulin E11.65 Primary hypertension I10 Hypertriglyceridemia E78.1 Obesity, morbid, BMI 40.0-49.9 E66.01 Acute blood loss anemia D62 (1) BPH (benign prostatic hyperplasia) Lower urinary tract symptom presence: symptoms present Lower urinary tract symptom detail: nocturia Qualified Code(s): N40.1 - Benign prostatic hyperp lasia with lower urinary tract symptoms; R35.1 - Nocturia
--- NOTE | 2021-05-06 14:36 | Pharmacy Report ---
Pharmacy Glycemic Short Note 2 - Date of Service May 06, 2021 - Glycemic Short BSG Results (Last 24 hours): 05/05/21 05/05/21 05/06/21 18:01 20:38 00:10 Glucose POC Glucose 197 H 171 H 116 H 05/06/21 05/06/21 05/06/21 04:44 06:05 08:15 Glucose 122 H POC Glucose 121 H 128 H 05/06/21 12:00 Glucose POC Glucose 143 H OUTPATIENT ANTIDIABETIC REGIMEN: * Metformin ER 1000 mg PO BID * Liraglutide SQ daily * Empagliflozin 25 mg PO daily ASSESSMENT: * 71 y/o M admitted for Spinal stenosis surgery. * NPH basal dose of 25 units SQ given yesterday x1 around dinner to prevent s teroid induced hyperglycemia. Patient had received Dexamethasone 12 mg IV x1 in the OR. * Dexamethasone 6 mg IV daily x 3 days continued. NPH 25 units SQ given this AM as well. Plan to reduce this dose tomorrow. * Novolog CF/CR ordered based on wt and stress of 3 last night. Loosened parameters today with dinner. PLAN FOR INPATIENT GLYCEMIC CONTROL: * Hold outpatient oral diabetes medications * Basal insulin * NPH 25 units SQ given yesterday x1 and 25 units SQ today with IV Dexamethasone. * NPH 20 units SQ daily starting tomorrow with IV Dex * Bolus insulin * NovoLog per scale ACHS or Q6hrs while NPO * Goal Range: Low 110 mg/dL - High 140 mg/dL * Correction Factor: 25 mg/dL/unit * Nutritional / Prandial insulin per carb ratio of 1 unit per 8 grams CHO consumed
[2021-05-06] MEDS: DOCUSATE SODIUM/SENNA 50/8.6MG TAB PO SCH (20:43)
[2021-05-07] MEDS: POLYETHYLENE (MIRALAX) 17 GM PACK PO SCH ×4 (05:42→23:08)
[2021-05-07] MEDS: HYDROmorphone INJ 1 MG/ML SYRINGE IV PRN ×2 (05:43→10:05)
[2021-05-07] MEDS: INSULIN ASPART PER UNIT SC SCH ×4 (09:08→21:28)
[2021-05-07] MEDS: INSULIN HUMAN NPH SC SCH (09:09)
[2021-05-07] MEDS: dexAMETHasone 6 MG in SYRINGE 0 ML IV SCH (09:12)
[2021-05-07] MEDS: TAMSULOSIN HCL 0.4 MG CAP PO SCH (09:13)
[2021-05-07] MEDS: ATORVASTATIN 20 MG TAB PO SCH (09:13)
[2021-05-07] MEDS: hydroCHLOROthiazide 25 MG TAB PO SCH (09:16)
[2021-05-07] MEDS: IRBESARTAN 150 MG TAB PO SCH (09:16)
[2021-05-07 10:46] LABS: Hematocrit (blood only) 32.5 % (42-52); Hemoglobin 11.4 g/dL (14.0-18.0); Mean Corpuscular Hemoglobin 30.6 pg (25-34); Mean Corpuscular Hgb Conc 35.1 g/dL (32-36); Mean Corpuscular Volume 87.4 fL (80-100); Mean Platelet Volume 8.9 fL (7.4-10.4); Platelet Count 170 K/uL (130-400); RDW Coefficient of Variation 13.5 % (11.5-14.5); RDW Standard Deviation 43.4 fL (36.4-46.3); Red Blood Count 3.72 M/uL (4.7-6.1)
--- NOTE | 2021-05-07 12:06 | Hospitalist Progress Note ---
Date of Service May 07, 2021 Assessment & Plan (1) Neurogenic claudication due to lumbar spinal stenosis: Plan: Max Licona is a 71yo male with PMHx significant for severe DARRIUS, T2DM, HTN, hypertriglyceridemia, BPH and obesity who was admitted to [facility] on 05/05/2021 for L3-S1 revision decompression/fusion due to severe stenosis and associated radiculopathy. We were consulted for med management. - S/P L3-S1 revision decompression/fusion on 05/05 - Doing well post-operatively; pain is present but tolerable - Reports [place] does better for him so switched the Oxy over -- was only using Dilaudid and will try and use more oral options with IV for breakthrough -- Continue pain/bowel regimen - Decadron 6 mg IV daily x 3 days - Encourage incentive spirometry; PT/OT - Surgical management per primary team (2) Acute blood loss anemia: Plan: Acute blood loss and hemodilution related anemia - Hgb trended down from 16.2 to 11.2 on 05/06 but staying at 11.4 on today's labs and asymptomatic; EBL 900 mL - No indication for transfusion (3) Type 2 diabetes mellitus with hyperglycemia, without long-term current use of insulin: Plan: - A1c currently down to 6.8 - Reports he is to start Trulicity - he just received this a couple days ago and hasn't started this - Glycemic pharmacy following (4) Severe obstructive sleep apnea: Plan: - BiPAP nightly (5) BPH (benign prostatic hyperplasia): Plan: - Continue Flomax (6) Primary hypertension: Plan: - STABLE - Continue HCTZ and Ibesartan (7) Hypertriglyceridemia: Plan: - Continue Atorvastatin 20 mg daily (8) Obesity, morbid, BMI 40.0-49.9: Plan: - Noted Plan: Disposition per primary team; plan to continue home medications on D/C. Hospitalist service will continue to monitor. Patient anticipates home tomorrow. Admission and Anticipated Discharge Date Admission Date: May 05, 2021 Subjective No acute events overnight. Continues to be sore but was standing in room when I was talking with him. Using a brace/binder for support. Hgb staying around 11. No dizziness, CP, or SOB. Tolerating a diet without issue. BSGs acceptable. Verbalizes no new complaints. Review of Systems Review of Systems: All systems reviewed & are unremarkable except as noted in Subjective Physical Exam Physical Exam: PHYSICAL EXAM General Appearance: WDWN in NAD who is A&O x 3 HEENT: Head is normocephalic/atraumatic; Hearing grossly intact Neck: Supple; Trachea midline; Neg JVD Neurological: Speech clear; Gross motor/sensory function intact; Neg focal neurologic deficits Psychiatric: Appropriate mood/affect Skin: Normal Color; Warm/Dry Results & Data Results & Data ([facility]) Vital Signs (Past 12 Hours) Vital Signs Temp Pulse Resp BP Pulse Ox 05/07/21 07:57 36.5 C 83 16 137/81 98 PG Care Time/CCT Total # of Minutes Spent Total Time Spent with Patient: Total time spent is greater than 50% in coordination of care (as documented) at patient's floor/unit and/or counseling patient: Coding Level of Care Code 84635 Inpt Consult Level 2 Diagnoses Neurogenic claudication due to lumbar spinal stenosis M48.062 Acute blood loss anemia D62 Type 2 diabetes mellitus with hyperglycemia, without long-term current use of insulin E11.65 Severe obstructive sleep apnea G47.33 BPH (benign prostatic hyperplasia) N40.1; R35.1 Lower urinary tract symptom presence: symptoms present Lower urinary tract symptom detail: nocturia Primary hypertension I10 Hypertriglyceridemia E78.1 Obesity, morbid, BMI 40.0-49.9 E66.01 (1) BPH (benign prostatic hyperplasia) Lower urinary tract symptom presence: symptoms present Lower urinary tract symptom detail: nocturia Qualified Code(s): N40.1 - Benign prostatic hyperplasia with lower urinary tract symptoms; R35.1 - Nocturia
--- NOTE | 2021-05-07 12:19 | Orthopedic Progress Note ---
Date of Service May 07, 2021 Assessment & Plan (1) Neurogenic claudication due to lumbar spinal stenosis: Plan: This time we will continue physical therapy monitor his SHANE output anticipate discharge home tomorrow. Admission and Anticipated Discharge Date Admission Date: May 05, 2021 Subjective Back pain controlled leg pain improved Physical Exam Physical Exam: Patient is in the chair at bedside. Skin strength testing. Appears comfortable. Results & Data ([facility]) Vital Signs (Past 12 Hours) Vital Signs Temp Pulse Resp BP Pulse Ox 05/07/21 07:57 36.5 C 83 16 137/81 98
[2021-05-07] MEDS: HYDROCODONE/ACETAMOPHEN 5/325MG TAB PO PRN ×3 (13:46→23:10)
[2021-05-07] MEDS: DOCUSATE SODIUM/SENNA 50/8.6MG TAB PO SCH (21:28)
[2021-05-08] MEDS: HYDROCODONE/ACETAMOPHEN 5/325MG TAB PO PRN ×2 (03:32→07:34)
[2021-05-08] MEDS: POLYETHYLENE (MIRALAX) 17 GM PACK PO SCH (06:33)
--- NOTE | 2021-05-08 08:34 | Discharge Summary ---
Date of Service May 08, 2021 Admission HPI Per Admitting Provider This is a 71-year-old male who presents with current persistent back and bilateral leg pain. Failing course of nonoperative care is here for surgical invention. Principal Diagnosis Lumbar spinal stenosis with neurogenic claudication Discharge Data Allergies Allergy/AdvReac Type Severity Reaction Status Date / Time ketamine AdvReac Intermediate anger Verified 05/05/21 08:15 issues Consultations 05/05/21 17:25 Consult Hospitalist Routine Procedures Performed Operation Date: 05/05/21 09:35 Actual Procedures p L3-S1 Revision Decompression, with bone morphogenetic protein, application of ifactor bone graft, interbody fusion L3-L5, Fusion Spinal Cord Monitoring(Bilateral) - Herman Torres DO Ordered Studies 05/05/21 09:35 [place] lumbar spine 2-3V Routine Hospital Course (1) Neurogenic claudication due to lumbar spinal stenosis: Patient 1 multilevel lumbar decompression fusion tolerated so was taken to orthopedic floor postoperative. Postop day 1 is up and ambulating progressed postop day #2. Pain well controlled excellent strength testing. Subsequent discharge home. We did discharge home the patient with his SHANE drain. He will follow-up on Monday for dressing change and drain removal in the office. Total Time Total Time Spent Total Time Spent (In Minutes): 20 minutes Discharge Plan Discharge Items Patient Disposition: Home - Self-Care Reason For Visit: Spinal Stenosis, Lumbar Region Discharge Diagnosis: Lumbar spinal stenosis with neurogenic claudication Activity: As commented below Non-emergency contact: Primary Care Provider Call non-emergency contact if: you have any medication questions Follow-up/Referrals: Fara Youssef MD [Primary Care Provider] - Diet: Regular Addtl Attending Provider Instructions: ACTIVITY RECOMMENDATIONS: SELF CARE INSTRUCTIONS AFTER THORACIC/LUMBAR FUSIONS 1. You may walk to your tolerance. It is good exercise for your legs and back. Expect some back and intermittent leg aches and pains. 2. You may perform "counter-top" level activities (make a sandwich, cecil with a project, etc.). 3. No bending or lifting of more than 10 pounds or back twisting of any nature (roll like a log when turning in bed). 4. You may ride in a car for 20-30 minutes at a time. No driving until after your first visit with your doctor. 5. Frequent changes of position and restricting sitting to 30 minutes at a time will help limit the amount of back spasms and stiffness you may experience. 6. You may discontinue the use of ambulatory aids (cane, crutches, etc.) once your strength and confidence allow. 7. You may chemical test engineer the shower and let water strike your incision when you arrive home at least once daily. Do not take a tub bath, sit in a hot tub or go into a swimming pool until after your first recheck in the office. SPECIAL CARE INSTRUCTIONS: VERY IMPORTANT TO READ AND REVIEW A. Your surgical incision has been closed with a cosmetic suture under the skin that will dissolve in about 6 weeks. In 14 days, you can use a pair of clean scissors and cut the suture that is left outside of the skin at the ends of your incision. 1. The small skin tapes can be removed 7 days after surgery if they have not fallen off by that point. 2. You may keep the wound open to air as much as possible to promote healing after post-op day number 5 unless told otherwise by your doctor. 3. If you think the wound looks like it is becoming infected (redness or worsening drainage) and/or you are experiencing fever, chill or worsening back pain and muscle spasms, contact the office so that we may evaluate you as soon as possible. B. Complications are uncommon, but please contact us if you have any signs or symptoms of: 1. wound infection (fever higher than 102.5 degrees F, redness, separation of wound, drainage, or increasing pain from the incision) 2. blood clots in legs (pain, swelling, redness and warmth in legs) 3. urinary tract infection (fever higher than 102.5 degrees F, burning upon urination or increased frequency of urination) 4. nerve problems (inability to walk on your toes or heels, numbness, loss of bowel or bladder control) 5. any other symptoms that concern you C. Please call the office at if you have any concerns or questions about your operation or recovery. D. No smoking! Smoking drastically decreases the chance of a solid fusion. E. Do not take any anti-inflammatory medications (Indocin, Advil, Motrin, Asp irin, Naprosyn, etc.) as these may inhibit the chance of a solid fusion. Tylenol is okay to take for pain. MANAGING PAIN AFTER SPINAL SURGERY 1. Narcotic medication is intended for short-term use and will be provided for surgical pain. Surgical pain usually lasts for a period of 4-6 weeks. Narcotic medication includes Percocet, Vicodin, Darvocet, Tylenol #3 or Lortab. 2. Longer-term pain is more appropriately treated with non-narcotic medication such as Tylenol ES. 3. Muscle spasm is not appropriately treated with narcotics. Muscle relaxers such as Soma, Flexeril or Skelaxin can be used along with Tylenol ES. 4. Remember that we all live with some "aches and pains". This is not unusual or uncommon after an injury or as we get older. a. Back pain is expected and may include muscle spasms for 4 to 6 weeks after surgery. The pain should gradually improve. If the pain worsens for no apparent reason, please contact the office. b. Intermittent leg pain may also be experienced and should not be concerned about unless it worsens for no apparent reason. If so, please contact the office. 5. We will provide appropriate medication within the normal guidelines of their prescribed use. We will also be very cautious and aware of potential abuse and extended duration of patients' medication needs. a. Pain medications are for your comfort and to assist with sleep and rest so that the tissue can heal. They are not provided in order to return to normal activity and should not be used through the day. To do so or worsening pain at night can result from ongoing tissue damage and development of tolerance to the prescribed medicine. 6. Please allow 2-3 days to process refills. Prescriptions will not be mailed but must be picked up at the office. FOLLOW UP VISIT: Keep your scheduled follow-up appointment. Any questions, please call the office at . Pending Studies at Discharge: No Stand-Alone Forms: [employer], Smoking Cessation Medications and DC Order Prescriptions: New tramadol 50 mg tablet 50 mg PO Q6H PRN (Reason: pain, moderate) Qty: 30 RF: 0 oxycodone 5 mg tablet 5 mg PO Q6H PRN (Reason: pain, severe) Qty: 30 RF: 0 Continued metformin 500 mg tablet extended release 24 hr 1,000 mg PO BID Qty: 360 RF: 1 liraglutide 0.6 mg/0.1 mL (18 mg/3 mL) pen injector See Rx Instructions subcut .COMPLEX Qty: 9 RF: 3 (DME) pen needle, diabetic [Novofine 32] 32 gauge x 1/4" needle See Rx Instructions .ROUTE .MEDSUPPLY Qty: 100 RF: 0 atorvastatin 20 mg tablet 20 mg PO QAM RF: 0 meloxicam 15 mg tablet 15 mg PO QAM RF: 0 tamsulosin 0.4 mg capsule 0.4 mg PO QAM RF: 0 hydrochlorothiazide 25 mg tablet 25 mg PO QAM RF: 0 irbesartan 300 mg tablet 300 mg PO QAM RF: 0 empagliflozin 25 mg tablet 25 mg PO QAM RF: 0 Discharge Orders: Discharge Order (Routine); Ordered 05/08/21 Ordered By: Herman Torres Admission Data Admit Date/Time: 05/05/21 10:12 Attending Provider: Herman Torres Admit Provider: Herman Torres Primary Care Provider: Fara Youssef Other Providers: Enrico Navarro
[2021-05-08] MEDS: hydroCHLOROthiazide 25 MG TAB PO SCH (09:02)
[2021-05-08] MEDS: IRBESARTAN 150 MG TAB PO SCH (09:02)
[2021-05-08] MEDS: ATORVASTATIN 20 MG TAB PO SCH (09:03)
[2021-05-08] MEDS: TAMSULOSIN HCL 0.4 MG CAP PO SCH (09:03)
[2021-05-08] MEDS: INSULIN ASPART PER UNIT SC SCH (09:05)
[2021-05-08] MEDS: dexAMETHasone 6 MG in SYRINGE 0 ML IV SCH (09:05)
[2021-05-08] MEDS: INSULIN HUMAN NPH SC SCH (09:06)
== END 2021-05-08 10:36 | disposition home or self-care (01) | DRG 454 ==
LOC: ASU 08:02 → SUATTDRO 10:12 → PACUINP 13:48 → 3W 17:44

== ENCOUNTER 2021-07-13 06:21 | Inpatient (IN) ==
--- NOTE | 2021-07-09 14:54 | Anesthesiology Consultation ---
Date of Service July 09, 2021 Assessment & Plan (1) Encounter for pre-operative examination: Chart Review Chart Review: Acceptable Risk for Surgery (pending preop Covid testing and DOS labs ) and Patient NOT seen in Pre Admission Testing -No preop labs ordered- will order CBC with diff, PRP and coags for DOS. - Check BSG AM DOS Per nursing assessment 07/09/2021, patient denies any recent travel. No known COVID infection in the past 90 days. Patient is fully vaccinated for COVID. No known Covid positive exposures or Covid related symptoms. Preop Covid testing scheduled 07/09/21= results pending L3-S1 decompression and fusion 05/05/21 = done under GA with grade 2 view with glidescope #4. ETT #8.0. Atraumatic. Seen by PCP 04/20/2021(prior to L3-S1 fusion 05/05/21)= patient seen for preoperative risk assessment.Preoperative risk assessmentno active conditions that require urgent management prior to any surgical procedure. Underlying condition was relatively controlled (diabetes, HTN, HLD). RCRI 0 =0.4% risk of cardiac , nonfatal AR or nonfatal cardiac arrest. Patient is a low risk patient for a low risk procedure. Functional capacity approximately 5 METS. No further preoperative testing indicated. Mildly elevated pulmonary risk due to age, obesity, intermittent smoking, complex sleep apnea. No history of adverse reaction anesthesia with prior surgeries, except mood/psych disturbance with ketamine. Max Licona is medically optimized and an acceptable risk to proceed with the planned surgery. Preop labs ordered today, to be obtained tomorrow. Per PCP [facility] Communication Note 04/22/21 (prior to L3-S1 fusion 05/05/21)=" EKG, CXR, & preop labs from yesterday reviewed. Patient remains medically optimized and at an acceptable risk for surgery, no further preop workup indicated." History Surgery Operation Date: 07/13/21 10:05 Proposed Procedures p L3-S1 Hardware Removal, L3-S1 Fusion with Iliac Bolts - Herman Torres, Height/Weight Height: 5 ft 11 in Weight: 129.274 kg Allergies Allergy/AdvReac Type Severity Reaction Status Date / Time ketamine AdvReac Intermediate anger Verified 07/09/21 13:51 issues Medications Home Medications Medication Instructions Recorded Confirmed Last Taken atorvastatin 20 mg tablet 20 mg PO QAM 04/16/21 07/09/21 05/05/21 04:00 hydrochlorothiazide 25 mg tablet 25 mg PO QAM 04/16/21 07/09/21 05/04/21 08:00 irbesartan 300 mg tablet 300 mg PO QAM 04/16/21 07/09/21 05/04/21 08:00 meloxicam 15 mg tablet 15 mg PO QAM 04/16/21 07/09/21 05/04/21 15:00 tamsulosin 0.4 mg capsule 0.4 mg PO QAM 04/16/21 07/09/21 05/05/21 04:00 liraglutide 0.6 mg/0.1 mL (18 mg/3 See Rx Instructions SUBCUT 04/20/21 07/09/21 Unknown mL) subcutaneous pen injector .COMPLEX #9 ml pen needle, diabetic 32 gauge x #100 ea 04/20/21 04/20/21 Unknown 1/4" (Novofine 32) oxycodone 5 mg tablet 5 mg PO Q6H PRN #30 tab 05/05/21 07/09/21 Unknown blood sugar diagnostic (OneTouch #100 ea 05/10/21 Unknown Verio test strips) lancets 33 gauge (OneTouch Delica #100 ea 05/10/21 Unknown Lancets) empagliflozin 25 mg tablet 25 mg PO QAM 07/09/21 07/09/21 Unknown (Jardiance) metformin 500 mg tablet,extended 500 mg PO BID 07/09/21 07/09/21 Unknown release 24 hr Past Medical History Medical History BPH (benign prostatic hyperplasia) Hypertriglyceridemia Lumbar back pain Metabolic syndrome Primary hypertension Severe obstructive sleep apnea Wears BiPAP every night Type 2 diabetes mellitus with hyperglycemia, without long-term current use of insulin Does not check glucose Hgb A1C 6.8 on 04/21/21 Past Family History Family History Other No family history of adverse response to anesthesia Denies family history of Ovarian cancer Prostate cancer Breast cancer Lung cancer Colorectal cancer Past Surgical History Surgical History H/O elbow surgery RT H/O hernia repair H/O neck surgery HARDWARD H/O shoulder surgery RT/LEFT History of back surgery ? DETAILS History of colonoscopy History of tonsillectomy History of total knee replacement RT/LEFT Social History Smoking Status: Former smoker tobacco type: cigars (currently- occasionally ) Do You Dip or Chew Tobacco: No Smoking End Date: QUIT YRS AGO Hx Alcohol Use: Yes Alcohol type: beer alcohol intake frequency: holidays/special occasions only Hx Substance Use: No substance use type: does not use Testing Electrocardiogram Date: 04/21/21 Sinus rhythm with first-degree AV block at 70 bpm. Possible inferior infarct, age undetermined. When compared to EKG from 07/21/2015PR interval has increased. Chest X-Ray Date: 04/21/21 Findings: + NAD Other Testing AAA screening ultrasound 01/27/2021 = no abdominal aortic aneurysm.
[2021-07-13 06:45] LABS: Basophils # (auto) 0.01 K/uL (0-0.2); Basophils % (auto) 0.1 %; Eosinophils % (auto) 4.1 %; Hematocrit (blood only) 42.2 % (42-52); Hemoglobin 14.2 g/dL (14.0-18.0); Immature Granulocytes # (auto) 0.02 K/uL (0.00-0.02); Immature Granulocytes % (auto) 0.3 %; Lymphocytes # (auto) 2.63 K/uL (1.2-3.4); Lymphocytes % (auto) 35.6 %; Mean Corpuscular Hemoglobin 28.7 pg (25-34); Mean Corpuscular Volume 85.4 fL (80-100); Mean Platelet Volume 9.2 fL (7.4-10.4); Monocytes % (auto) 6.8 %; Neutrophils # (auto) 3.92 K/uL (1.4-6.5); Neutrophils % (auto) 53.1 %; Platelet Count 207 K/uL (130-400); RDW Coefficient of Variation 13.9 % (11.5-14.5); RDW Standard Deviation 42.8 fL (36.4-46.3); Red Blood Count 4.94 M/uL (4.7-6.1); White Blood Count 7.38 K/uL (4.8-10.8)
[2021-07-13 06:46] LABS: Mean Corpuscular Hgb Conc 33.6 g/dL (32-36)
[2021-07-13] MEDS ORDERED: ceFAZolin 330 MG/ML 1 GM VIAL ONE (06:58)
[2021-07-13] MEDS ORDERED: BUPIVACAINE/EPINEPHRINE 0.25% 1:200,000 30 ML VIAL ONE (06:58)
[2021-07-13] MEDS ORDERED: LIDOCAINE 2% 2 ML VIAL/AMP(20MG/ML) INFIL ONE (06:59)
[2021-07-13] MEDS ORDERED: DEXAMETHASONE SOD INJ 4 MG/ML VIAL ONE (06:59)
[2021-07-13] MEDS ORDERED: ONDANSETRON INJ 2 MG/ML 2 ML VIAL ONE ×2 (06:59→10:09)
[2021-07-13] MEDS ORDERED: NEOSTIGMINE METHYLSULFATE 1 MG/ML 10ML VIAL ONE (06:59)
[2021-07-13] MEDS ORDERED: GLYCOPYRROLATE 0.2 MG/ML VIAL ONE (06:59)
[2021-07-13] MEDS ORDERED: PROPOFOL IV EMULSION 10 MG/ML 20 ML VIAL IV ONE (06:59)
[2021-07-13] MEDS ORDERED: MIDAZOLAM HCL 1 MG/ML 2ML VIAL ONE (07:00)
[2021-07-13] MEDS ORDERED: fentaNYL citrate 100 MCG/2 ML VIAL ONE ×3 (07:00→10:09)
[2021-07-13 07:02] LABS: INR 1.1 (0.9-1.1); Partial Thromboplastin Time 27.3 Seconds (21.0-31.0); Prothrombin Time 11.2 Seconds (9.0-12.0)
[2021-07-13 07:04] LABS: BUN Creatinine Ratio 26.6 (10-20); Calcium 9.5 mg/dl (8.5-10.1); Creatinine Clr Calc Pharmacy 119.1 ml/min; Est GFR (African American) 106.2 ml/min; Est GFR (Non-African American) 91.6 ml/min; Potassium 3.8 mmol/L (3.5-5.1)
--- NOTE | 2021-07-13 07:28 | History & Physical Bridge Note ---
Date of Service July 13, 2021 History & Physical Bridge Note I have examined the patient, reviewed the History & Physical and in the interval since the performance of the History & Physical I have noted the following changes of clinical significance: no changes noted
--- NOTE | 2021-07-13 07:29 | History & Physical Report ---
Date of Service July 13, 2021 Assessment & Plan (1) Neurogenic claudication due to lumbar spinal stenosis: Plan: Hardware removal L3-S1, fusion L3-S1 with iliac bolts History of Present Illness Chief Complaint: Postoperative back pain secondary to broken hardware Primary Care Provider: Fara Youssef MD This is a 71-year-old male that presents postoperatively with fracture of instrumentation is here for surgical revision Allergies Allergy/AdvReac Type Severity Reaction Status Date / Time ketamine AdvReac Intermediate anger Verified 07/13/21 06:29 issues Home Medications Medication Instructions Recorded Confirmed Type atorvastatin 20 mg tablet 20 mg PO QAM 04/16/21 07/13/21 History hydrochlorothiazide 25 mg tablet 25 mg PO QAM 04/16/21 07/13/21 History irbesartan 300 mg tablet 300 mg PO QAM 04/16/21 07/13/21 History meloxicam 15 mg tablet 15 mg PO QAM 04/16/21 07/13/21 History tamsulosin 0.4 mg capsule 0.4 mg PO QAM 04/16/21 07/13/21 History liraglutide 0.6 mg/0.1 mL (18 mg/3 See Rx Instructions SUBCUT 04/20/21 07/13/21 Rx mL) subcutaneous pen injector .COMPLEX #9 ml pen needle, diabetic 32 gauge x #100 ea 04/20/21 04/20/21 Rx 1/4" (Novofine 32) oxycodone 5 mg tablet 5 mg PO Q6H PRN #30 tab 05/05/21 07/13/21 Rx blood sugar diagnostic (OneTouch #100 ea 05/10/21 Rx Verio test strips) lancets 33 gauge (OneTouch Delica #100 ea 05/10/21 Rx Lancets) empagliflozin 25 mg tablet 25 mg PO QAM 07/09/21 07/13/21 History (Jardiance) metformin 500 mg tablet,extended 500 mg PO BID 07/09/21 07/13/21 History release 24 hr Past Med/Surg History Medical History BPH (benign prostatic hyperplasia) Hypertriglyceridemia Lumbar back pain Metabolic syndrome Primary hypertension Severe obstructive sleep apnea Wears BiPAP every night Type 2 diabetes mellitus with hyperglycemia, without long-term current use of insulin Does not check glucose Hgb A1C 6.8 on 04/21/21 Surgical History H/O elbow surgery RT H/O hernia repair H/O neck surgery HARDWARD H/O shoulder surgery RT/LEFT History of back surgery ? 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: No Beliefs That Will Affect Care: None marital status: Current Living Situation: Spouse current occupational status: retired Other Information That Helps Us Care for You: No Feels Safe at Home: Yes Safety Concerns: Feels Safe At This Time Dental Care, Regularly: Yes Physical Activity Frequency: 3-4 Times per Week Seatbelt Use: always Sunscreen Use: Yes Assistive Devices: Brace/Splint/Immobilizer and Glasses Assistive Devices Comment: BACK BRACE Physical Exam Physical Exam: Patient is alert and oriented Heart regular rhythm Lungs clear Results & Data Results & Data ([facility]) Vital Signs (Past 12 Hours) Vital Signs Temp Pulse Resp BP Pulse Ox 07/13/21 06:36 37 C 68 18 142/89 H 97
[2021-07-13] MEDS ORDERED: FLOSEAL HEMOSTATIC MATRIX 10ML TOP ONE (08:28)
[2021-07-13] MEDS ORDERED: SUGAMMADEX SODIUM 200 MG/2 ML VIAL IV ONE (09:31)
[2021-07-13] MEDS ORDERED: ROCURONIUM BROMIDE 10 MG/ML 5 ML VIAL IV ONE (09:32)
--- NOTE | 2021-07-13 09:37 | Operative Report ---
Post Operative Report Pre & Post Diagnosis Operation Date: 07/13/21 07:45 Pre-Op Diagnosis: Been lumbar instrumentation with back pain Post-Op Diagnosis: Same I identified the patient and participated in the time-out.: Yes Procedure Operation Date: 07/13/21 07:45 Actual Procedures #1 removal of posterior instrumentation L3-S1 with extraction of broken screw. #2 bilateral open SI joint fusions. #3 placement of posterior instrumentation L3-S1 including bilateral iliac bolts and new screw to the left S1 pedicle. #4 placement infuse collagen sponge, master graft in the bilateral SI joints and L5-S1 levels. #5 revision fusion L5-S1 Surgeon Herman Torres, DO Preschool Assistant Director Christiane Hernandez Estimated Blood Loss 650 Findings See Below The patient is 5 foot 11 inches tall weighing over 125 kg with a BMI in excess of 38. The patient's body habitus did contribute to significant technical difficulty contributed to hardware failure. This at least 50% increase to the operative time. Specimens None Indications This is a 71-year-old male status post lumbar decompression fusion presents with worsening lumbosacral back pain and evidence of broken S1 screws and is here for revision. Description of Procedure Patient was met with identified informed consent obtained. Patient was then taken to the operative suite underwent a patient placed in a prone position the Shaw table atop the Deny frame. All bony prominences well-padded eyes inspected to ensure no external pressure placed upon them. This point the lumbar spine was prepped and draped in normal sterile fashion. Sharp dissection with assistance of Bovie cautery from down to and exposing instrumentation of L3-S1 bilaterally. I proceeded move the hardware bilaterally noting fractures of the bilateral S1 screws. The left screw was fractured just under the tulip head the right screw was fractured to the mid substance and the tip was deep within the sacrum. I was able to successfully remove the remainder of the screw on the left at S1 and replaced it with an 8.5 x 40 mm screw. I then exposed the bilateral SI joints and medial aspect of the ileum. Sacral bolts were then placed with the assistance of fluoroscopy I then curetted and burred out the bilateral SI joints. I then packed infuse collagen sponge, master graft in the posterior lateral gutters from L5-S1 and into the bilateral SI joints. Proper size rods were then reinserted extending from L3 to the iliac bolts bilaterally and locked into place. Incision was then copiously irrigated 15 round SHANE drain inserted. The incision then closed with 1 Vicryl fascia 2-0 Vicryl subcutaneously and 4 Monocryl for final closure. Steri-Strips dressings placed. Patient will continue PACU stable condition. I attest to the content of the Intraoperative Record and any orders documented therein. Any exceptions are noted below.
[2021-07-13] MEDS ORDERED: HYDROmorphone INJ 2 MG/ML SYR/VIAL IV PRN (10:08)
[2021-07-13] MEDS ORDERED: ATROPINE SULFATE 0.1 MG/ML 10ML SYR IV PRN (10:08)
[2021-07-13] MEDS ORDERED: ONDANSETRON INJ 2 MG/ML 2 ML VIAL IV PRN ×2 (10:08→11:24)
[2021-07-13] MEDS ORDERED: ePHEDrine sulfate 50 MG/ML AMP IV PRN (10:08)
[2021-07-13] MEDS ORDERED: PROMETHAZINE HCL 12.5 MG in SODIUM CHLORIDE 0.9% 50 ML IV PRN ×2 (10:08→11:24)
[2021-07-13] MEDS: fentaNYL citrate 100 MCG/2 ML VIAL IV PRN ×2 (10:11→10:20)
--- NOTE | 2021-07-13 10:20 | Fluoroscopy Report ---
INTRAOPERATIVE RADIOGRAPHS CLINICAL HISTORY: L3-S1 spinal fusion with iliac bolts. Fluoroscopy time: 24 seconds. FINDINGS: 3 spot fluoroscopic views of the lumbar spine are presented. There is discectomy change at L4-L5 and L5-S1 with laminectomy and posterior fusion seen extending from at least L3-S1. Interpedicu lar screws are noted at all visualized levels. Bilateral iliac bolts are in place. The orthopedic elijah [facility] appears intact. IMPRESSION: Intraoperative images from lumbar spinal fusion surgery as above. Electronically signed by: Dawood Oakley M.D. 07/13/2021 10:19 AM
[2021-07-13] MEDS ORDERED: ONDANSETRON 4 MG OD TAB PO PRN (11:24)
[2021-07-13] MEDS ORDERED: ALUMINUM/MAGNESIUM SUSP 30 ML UDC PO PRN (11:24)
[2021-07-13] MEDS ORDERED: LORazepam 2 MG/1 ML VIAL IV PRN (11:24)
[2021-07-13] MEDS ORDERED: METOCLOPRAMIDE HCL INJ 5 MG/ML 2 ML VIAL IV PRN (11:24)
[2021-07-13] MEDS ORDERED: SOD PHOSPHATE/SOD BIPHOSPHATE ENEMA 132 ML BTL PR PRN (11:24)
[2021-07-13] MEDS ORDERED: LORazepam 0.5 MG TAB PO PRN (11:24)
[2021-07-13] MEDS ORDERED: DO NOT ADMINISTER PNEUMOCOCCAL VACCINE PRN (11:24)
[2021-07-13] MEDS ORDERED: hydrOXYzine HCl 25 MG TAB PO PRN (11:24)
[2021-07-13] MEDS ORDERED: FAMOTIDINE 20 MG TAB PO PRN (11:24)
[2021-07-13] MEDS ORDERED: ACETAMINOPHEN 1,000 MG/100 ML VIAL IV PRN (11:24)
[2021-07-13] MEDS ORDERED: ACETAMINOPHEN 500 MG TAB PO PRN (11:24)
[2021-07-13] MEDS ORDERED: DO NOT ADMINISTER FLU VACCINE PRN (11:24)
[2021-07-13] MEDS ORDERED: HYDROmorphone INJ 0.5 MG/0.5 ML SYR IV PRN (11:24)
[2021-07-13] MEDS ORDERED: diphenhydrAMINE Capsule 25 MG CAP PO PRN (11:24)
[2021-07-13] MEDS ORDERED: bisacodyL 10 MG SUPP PR PRN (11:24)
[2021-07-13] MEDS ORDERED: HYDROmorphone INJ 1 MG/ML SYRINGE IV PRN (11:24)
[2021-07-13] MEDS ORDERED: MAGNESIUM HYDROXIDE SUSP 30 ML UDC PO PRN (11:24)
[2021-07-13] MEDS ORDERED: traMADol HCL 50 MG TABLET PO PRN (11:24)
[2021-07-13] MEDS ORDERED: NALOXONE HCL 0.4 MG/1 ML VIAL/CARP IV PRN (11:24)
[2021-07-13] MEDS ORDERED: PHARMACY GLYCEMIC MGMT CONSULT PRN (11:24)
--- NOTE | 2021-07-13 11:58 | Hospitalist Consultation ---
Date of Consultation July 13, 2021 Assessment & Plan (1) Lumbar back pain: - S/P L3-S1 hardware removal and revision POD#0; EBL 650 cc. - Patient doing well, comlains of mild b/l LE tingling, some back discomfort likely attributable to dressing placement. - Defer pain/abx/VTE ppx/bowel regimen management to primary team. - CBC and BMP in AM. - PT ordered to evaluate and treat. (2) Primary hypertension: - Normotensive, will hold BP meds until POD#2 () to avoid postural hypotension, dizziness in anticipation that patient may be mildly hypovolemic post-op, however if patient his very hypertensive tomorrow, would be acceptbale to continue HCTZ and irbesartan tomorrow AM or consider giving half his usual dose. (3) Type 2 diabetes mellitus with hyperglycemia, without long-term current use of insulin: - Hold home oral diabetic meds. - Pharmacy consulted during last admission for hyperglycemic control, they have been consulted by primary team, therefore will defer management to them. - A1c in Apr 2021 --> 6.8. - Diabetic/heart healthy diet. Pharmacy glycemic orders last admission 05/05/21: * Basal insulin * NPH 25 units SQ given POD#0 x1 and 25 units SQ POD#1 with IV Dexamethasone. * NPH 20 units SQ daily starting POD#2 with IV Dex * Bolus insulin * NovoLog per scale ACHS or Q6hrs while NPO * Goal Range: Low 110 mg/dL - High 140 mg/dL * Correction Factor: 25 mg/dL/unit * Nutritional / Prandial insulin per carb ratio of 1 unit per 8 grams CHO consumed (4) Hypertriglyceridemia: - Continue atorvastatin daily. (5) Severe obstructive sleep apnea: - Wears BIPAP at night, patient to use home BIPAP machine. (6) BPH (benign prostatic hyperplasia): - Continue home flomax. - Admitted med/surg - SCDs for DVT ppx. - Full Code. Supervising Physician Co-Signing Physician Notes Patient was seen and examined independently I discussed the case with Lupe PADILLA I reviewed pertinent past medical social family history and also the plan of care and agree with the plan of care. Patient underwent L3 S1 fusion with iliac bolts by Dr. Torres on 07/13/2021. Seen postoperatively in his room he has no complaints except for some pinching near his wound in his back. I asked the nurse to check a dressing. He is improvement of his radicular pain to his legs. He has intact sensation and strength distally. He has no shortness of breath or chest pain and his heart is regular lungs are clear Will continue at the system perioperative management delaying his antihypertensives until postop day 2 following his vital signs and laboratories Any exceptions will be noted below History of Present Illness Reason for Consultation: medical management Attending Physician: Herman Torres DO History of Present Illness Mr. Licona is a 71 y/o male with PMH significant for hypertension, hypertriglyceridemia, DM2, severe DARRIUS, and BPH who was admitted to [facility] on 07/13/2021 for L3-S1 surgical revision due worsening lumbosacral back pain and evidence of broken S1 screws. We were consulted for medication management management. He is POD#0 today and feels well, has some mild b/l tingling in the lower extremities, otherwise denies fever/chills, weakness, chest pain, palpitations, SOB, abdominal pain, nausea, vomiting, pain with voiding, diarrhea. He is sitting up and eating his lunch at time of my visit. Allergies Allergy/AdvReac Type Severity Reaction Status Date / Time ketamine AdvReac Intermediate anger Verified 07/13/21 06:29 issues Home Medications Medication Instructions Recorded Confirmed Type atorvastatin 20 mg tablet 20 mg PO QAM 04/16/21 07/13/21 History hydrochlorothiazide 25 mg tablet 25 mg PO QAM 04/16/21 07/13/21 History irbesartan 300 mg tablet 300 mg PO QAM 04/16/21 07/13/21 History meloxicam 15 mg tablet 15 mg PO QAM 04/16/21 07/13/21 History tamsulosin 0.4 mg capsule 0.4 mg PO QAM 04/16/21 07/13/21 History liraglutide 0.6 mg/0.1 mL (18 mg/3 See Rx Instructions SUBCUT 04/20/21 07/13/21 Rx mL) subcutaneous pen injector .COMPLEX #9 ml pen needle, diabetic 32 gauge x #100 ea 04/20/21 04/20/21 Rx 1/4" (Novofine 32) oxycodone 5 mg tablet 5 mg PO Q6H PRN #30 tab 05/05/21 07/13/21 Rx blood sugar diagnostic (OneTouch #100 ea 05/10/21 Rx Verio test strips) lancets 33 gauge (OneTouch Delica #100 ea 05/10/21 Rx Lancets) empagliflozin 25 mg tablet 25 mg PO QAM 07/09/21 07/13/21 History (Jardiance) metformin 500 mg tablet,extended 500 mg PO BID 07/09/21 07/13/21 History release 24 hr Patient History Medical History BPH (benign prostatic hyperplasia) Hypertriglyceridemia Lumbar back pain Metabolic syndrome Primary hypertension Severe obstructive sleep apnea Wears BiPAP every night Type 2 diabetes mellitus with hyperglycemia, without long-term current use of insulin Does not check glucose Hgb A1C 6.8 on 04/21/21 Surgical History H/O elbow surgery RT H/O hernia repair H/O neck surgery [facility] H/O shoulder surgery RT/LEFT History of back surgery ? 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: No Beliefs That Will Affect Care: None marital status: Current Living Situation: Spouse current occupational status: retired Other Information That Helps Us Care for You: No Feels Safe at Home: Yes Safety Concerns: Feels Safe At This Time Dental Care, Regularly: Yes Physical Activity Frequency: 3-4 Times per Week Seatbelt Use: always Sunscreen Use: Yes Assistive Devices: BiPap and Walker Assistive Devices Comment: BACK BRACE Review of Systems Review of Systems: Constitutional: No fever/chills, weakness, fatigue, myalgias, anorexia, night sweats Eyes: No diplopia, no worsening or blurred vision ENT: normal hearing, no trouble swallowing Respiratory: No cough, sputum, dyspnea at rest or on exertion Cardiovascular: No chest pain, tightness or palpitations Abdomen: No pain, nausea, vomiting, diarrhea or constipation : Denies dysuria, hematuria, increased urgency/frequency, urinary retention Musculoskeletal: No joint pain, calf pain, swelling Neurologic: reports mild b/l LE tingling; No weakness, numbness, or balance problems Psychiatric: No anxiety or depression Skin: No rash or itch Physical Exam Physical Exam: General: awake, alert, no apparent distress Head: Normocephalic, atraumatic ENT: PERRL, EOMI, no pharyngeal exudate, mucous membranes moist Chest: Clear to auscultation, on room air, no adventitious breath sounds Cardiac: Regular rate and rhythm, no murmur, no JVD, normal peripheral pulses, good capillary refill Abdominal: NABS x 4 quadrants, soft, nontender to palpation, no rebound, guarding or tenderness Extremities: Normal inspection, no peripheral edema or erythema, calfs nontender to palpation Psych: Normal mood and affect Neuro: AAO x 3, strength intact bilaterally and rated 5/5, no motor deficits, speech is clear, no peripheral sensory deficits Skin: no rash or erythema Results & Data Results & Data ([facility]) Vital Signs (Past 12 Hours) Vital Signs Temp Pulse Pulse Resp BP Pulse Ox 07/13/21 11:45 60 16 129/84 98 07/13/21 11:15 36.3 C L 60 16 131/79 99 07/13/21 11:00 36.2 C L 60 18 128/86 99 07/13/21 10:50 61 12 132/84 95 07/13/21 10:40 59 L 14 144/74 H 95 07/13/21 10:30 57 L 12 128/75 97 07/13/21 10:20 63 13 147/77 H 97 07/13/21 10:10 59 L 17 134/76 99 07/13/21 10:00 63 13 116/80 99 07/13/21 09:53 36.2 C L 68 10 L 145/79 H 100 07/13/21 06:36 37 C 68 18 142/89 H 97 Laboratory Results Abnormal lab results 07/13/21 07/13/2107/13/22 Range/Units 06:33 06:56 09:55 BUN/Creatinine Ratio 26.6 H (10-20) Glucose 114 H (70-99(Fasting)) mg/dl POC Glucose 111 H 131 H (70-99) mg/dl 07/13/21 Range/Units 11:51 BUN/Creatinine Ratio (10-20) Glucose (70-99(Fasting)) mg/dl POC Glucose 119 H (70-99) mg/dl Diagnostic Findings Lumbar Spine X-Ray 07/13/21 07:45 INTRAOPERATIVE RADIOGRAPHS CLINICAL HISTORY: L3-S1 spinal fusion with iliac bolts. Fluoroscopy time: 24 seconds. FINDINGS: 3 spot fluoroscopic views of the lumbar spine are presented. There is discectomy change at L4-L5 and L5-S1 with laminectomy and posterior fusion seen extending from at least L3-S1. Interpedicular screws are noted at all visualized levels. Bilateral iliac bolts are in place. The orthopedic hardware appears intact. IMPRESSION: Intraoperative images from lumbar spinal fusion surgery as above. Electronically signed by: Dawood Oakley M.D. 07/13/2021 10:19 AM PG Care Time/CCT Total # of Minutes Spent Total Time Spent with Patient: Total time spent is greater than 50% in coordination of care (as documented) at patient's floor/unit and/or counseling patient: Coding Level of Care Code 04183 Inpt Consult Level 3 Diagnoses Primary hypertension I10 Type 2 diabetes mellitus with hyperglycemia, without long-term current use of insulin E11.65 Hypertriglyceridemia E78.1 BPH (benign prostatic hyperplasia) N40.1; R35.1 Lower urinary tract symptom detail: nocturia Lower urinary tract symptom presence: symptoms present Severe obstructive sleep apnea G47.33 Lumbar back pain M54.5 (1) BPH (benign prostatic hyperplasia) Lower urinary tract symptom detail: nocturia Lower urinary tract symptom presence: symptoms present Qualified Code(s): N40.1 - Benign prostatic hyperplasia with lower urinary tract symptoms; R35.1 - Nocturia
--- NOTE | 2021-07-13 12:56 | Anesthesiology Progress Note ---
Date of Service July 13, 2021 Anesthesia Post Procedure Vital Signs Vital Signs: Temp Pulse Pulse Resp BP Pulse Ox 07/13/21 12:17 67 16 128/64 99 07/13/21 11:45 60 16 129/84 98 07/13/21 11:15 36.3 C L 60 16 131/79 99 07/13/21 11:00 36.2 C L 60 18 128/86 99 07/13/21 10:50 61 12 132/84 95 07/13/21 10:40 59 L 14 144/74 H 95 07/13/21 10:30 57 L 12 128/75 97 07/13/21 10:20 63 13 147/77 H 97 07/13/21 10:10 59 L 17 134/76 99 07/13/21 10:00 63 13 116/80 99 07/13/21 09:53 36.2 C L 68 10 L 145/79 H 100 07/13/21 06:36 37 C 68 18 142/89 H 97 Pain Intensity Back: Pain Intensity: 4 Transfer of Care Handoff Completed per policy Notes Mental Status: alert / awake / arousable and participated in evaluation Patient Amnestic to Procedure: Yes Nausea / Vomiting: adequately controlled Pain: adequately controlled Airway Patency, RR, SpO2: stable & adequate BP & HR: stable & adequate Hydration State: stable & adequate Anesthetic Complications: no major complications apparent
[2021-07-13] MEDS: SODIUM CHLORIDE 0.9% 1000ML 1,000 ML IV SCH ×2 (13:03→19:43)
[2021-07-13] MEDS: INSULIN ASPART PER UNIT SC SCH ×3 (13:13→21:24)
--- NOTE | 2021-07-13 13:16 | Pharmacy Report ---
Pharmacy Glycemic Short Note 2 - Date of Service July 13, 2021 - Glycemic Short BSG Results (Last 24 hours): 07/13/21 07/13/21 07/13/21 06:33 06:56 09:55 Glucose 114 H POC Glucose 111 H 131 H 07/13/21 11:51 Glucose POC Glucose 119 H OUTPATIENT ANTIDIABETIC REGIMEN: * Empagliflozin 25 mg qAM, metformin 500 mg BID, liraglutide SQ daily * A1c = 6.8% (04/21/21) ASSESSMENT: * Max is a 71 yo T2DM admitted for lumbar surgery * Excellent BSG control thus far. Patient may have received dexamethasone 4 mg IV juan-op (removed from [facility], not documented on). I have entered a one time dose of NPH for coverage of possible steroid induced hyperglycemia (to be given with dinner only if BSG is 150 mg/dL or more). * Will utilize weight + stress of2-3 for novolog parameters for POD #0 PLAN FOR INPATIENT GLYCEMIC CONTROL: * Hold outpatient oral diabetes medications * Basal insulin * NPH 20 units SQ with dinner x 1 dose only to be given if BSG is 150 mg/dL or more * Bolus insulin * NovoLog per scale ACHS or Q6hrs while NPO * Goal Range: Low 110 mg/dL - High 140 mg/dL * Correction Factor: 20 mg/dL/unit * Nutritional / Prandial insulin per carb ratio of 1 unit per 6 grams CHO consumed
[2021-07-13] MEDS: oxyCODONE HCL IR 5 MG TAB (IMMEDIATE RELEASE) PO PRN ×3 (13:24→21:35)
[2021-07-13] MEDS ORDERED: NovoLIN-N (NPH) PER UNIT CHARGE SQ SCH (16:30)
[2021-07-13] MEDS: ceFAZolin 2000MG 2,000 MG/15 ML SYR IV SCH (17:28)
[2021-07-13] MEDS: DOCUSATE SODIUM/SENNA 50/8.6MG TAB PO SCH (19:43)
[2021-07-14] MEDS ORDERED: INSULIN ASPART PER UNIT SC SCH
[2021-07-14] MEDS: SODIUM CHLORIDE 0.9% 1000ML 1,000 ML IV SCH (01:44)
[2021-07-14] MEDS: ceFAZolin 2000MG 2,000 MG/15 ML SYR IV SCH (01:50)
[2021-07-14] MEDS: oxyCODONE HCL IR 5 MG TAB (IMMEDIATE RELEASE) PO PRN ×5 (01:53→21:35)
[2021-07-14] MEDS: POLYETHYLENE (MIRALAX) 17 GM PACK PO SCH ×4 (06:21→23:10)
[2021-07-14 06:30] LABS: Basophils # (auto) 0.01 K/uL (0-0.2); Basophils % (auto) 0.1 %; Eosinophils # (auto) 0.37 K/uL (0-0.5); Eosinophils % (auto) 4.1 %; Hematocrit (blood only) 34.5 % (42-52); Hemoglobin 11.6 g/dL (14.0-18.0); Immature Granulocytes # (auto) 0.02 K/uL (0.00-0.02); Immature Granulocytes % (auto) 0.2 %; Lymphocytes # (auto) 2.06 K/uL (1.2-3.4); Lymphocytes % (auto) 22.7 %; Mean Corpuscular Hemoglobin 28.5 pg (25-34); Mean Corpuscular Hgb Conc 33.6 g/dL (32-36); Mean Corpuscular Volume 84.8 fL (80-100); Mean Platelet Volume 9.6 fL (7.4-10.4); Monocytes # (auto) 0.54 K/uL (0.11-0.59); Monocytes % (auto) 5.9 %; Neutrophils # (auto) 6.08 K/uL (1.4-6.5); Platelet Count 188 K/uL (130-400); RDW Coefficient of Variation 13.9 % (11.5-14.5); RDW Standard Deviation 42.6 fL (36.4-46.3); Red Blood Count 4.07 M/uL (4.7-6.1); White Blood Count 9.08 K/uL (4.8-10.8)
[2021-07-14 06:59] LABS: BUN Creatinine Ratio 18.2 (10-20); Calcium 8.5 mg/dl (8.5-10.1); Creatinine Clr Calc Pharmacy 122.2 ml/min; Est GFR (African American) 107.3 ml/min; Est GFR (Non-African American) 92.6 ml/min; Potassium 3.5 mmol/L (3.5-5.1)
[2021-07-14] MEDS: metFORMIN HCL 500 MG TAB PO SCH ×2 (08:43→17:15)
[2021-07-14] MEDS: ATORVASTATIN 20 MG TAB PO SCH (08:44)
[2021-07-14] MEDS: TAMSULOSIN HCL 0.4 MG CAP PO SCH (08:44)
[2021-07-14] MEDS: INSULIN ASPART PER UNIT SC SCH ×4 (08:49→21:34)
[2021-07-14] MEDS ORDERED: IRBESARTAN 150 MG TAB PO SCH (09:00)
[2021-07-14] MEDS ORDERED: hydroCHLOROthiazide 25 MG TAB PO SCH (09:00)
--- NOTE | 2021-07-14 09:17 | Pharmacy Report ---
Pharmacy Glycemic Short Note 2 - Date of Service July 14, 2021 - Glycemic Short BSG Results (Last 24 hours): 07/13/21 07/13/21 07/13/21 09:55 11:51 16:58 Glucose POC Glucose 131 H 119 H 113 H 07/13/21 07/14/21 07/14/21 20:38 00:01 05:42 Glucose 126 H POC Glucose 125 H 124 H OUTPATIENT ANTIDIABETIC REGIMEN: * Empagliflozin 25 mg qAM, metformin 500 mg BID, liraglutide SQ daily * A1c = 6.8% (04/21/21) ASSESSMENT: 07/14/21: * Max received 24 units of SQ bolus insulin yesterday with excellent glycemic control: 111, 119, 113, 125, 124 mg/dL * Fasting BSG is at goal without basal insulin on board. * He is tolerating an oral diet and renal function is at baseline, therefore, metformin may be resumed. Will loosen NovoLog parameters. 07/13/21: * Max is a 71 yo T2DM admitted for lumbar surgery * Excellent BSG control thus far. Patient may have received dexamethasone 4 mg IV juan-op (removed from [employer], not documented on). I have entered a one time dose of NPH for coverage of possible steroid induced hyperglycemia (to be given with dinner only if BSG is 150 mg/dL or more). * Will utilize weight + stress of2-3 for novolog parameters for POD #0 PLAN FOR INPATIENT GLYCEMIC CONTROL: * Resume metformin 500 mg PO BID * Basal insulin - none * Bolus insulin * NovoLog per scale ACHS or Q6hrs while NPO * Goal Range: Low 110 mg/dL - High 140 mg/dL * Correction Factor: 25 mg/dL/unit * Nutritional / Prandial insulin per carb ratio of 1 unit per 8 grams CHO consumed
--- NOTE | 2021-07-14 10:34 | Orthopedic Progress Note ---
Date of Service July 14, 2021 Assessment & Plan (1) Acute blood loss anemia: Plan: Patient is status post revision for hardware failure. We will initiate physical therapy today monitor his SHANE output hopefully discharge home in the next few days. Admission and Anticipated Discharge Date Admission Date: July 13, 2021 Subjective Back pain is controlled denies any leg pain. Physical Exam Physical Exam: Patient is sitting up in bed. He is comfortable. Discussed pain to testing. Results & Data ([facility]) Vital Signs (Past 12 Hours) Vital Signs Temp Pulse Pulse Resp BP BP Pulse Ox 07/14/21 07:37 36.9 C 72 16 135/90 93 07/14/21 02:14 37.0 C 63 16 155/91 H 98 07/13/21 22:51 36.8 C 65 16 124/74 97
[2021-07-14] MEDS ORDERED: POLYETHYLENE (MIRALAX) 17 GM PACK PO SCH (13:30)
[2021-07-14] MEDS ORDERED: ASPIRIN 81 MG CHEW PO STA ×2 (18:56→21:40)
--- NOTE | 2021-07-14 18:56 | Hospitalist Progress Note ---
Date of Service July 14, 2021 Assessment & Plan (1) Lumbar back pain: Plan: - S/P L3-S1 hardware removal and revision EBL 650 cc. -Patient has a SHANE drain -Discussed with Dr. Torres will restart the patient on aspirin 325 mg for anticoagulation as well as SCDs -No bowel movement for 2 days started on MiraLAX if no bowel movement by tomorrow we will use more aggressive approach (2) Primary hypertension: Plan: - Normotensive, will hold BP meds until POD#2 () to avoid postural hypotension, dizziness in anticipation that patient may be mildly hypovolemic post-op, however if patient his very hypertensive tomorrow, would be acceptbale to continue HCTZ and irbesartan tomorrow AM or consider giving half his usual dose. (3) Type 2 diabetes mellitus with hyperglycemia, without long-term current use of insulin: Plan: - Hold home oral diabetic meds. - Pharmacy consulted during last admission for hyperglycemic control, they have been consulted by primary team, therefore will defer management to them. - A1c in Apr 2021 --> 6.8. - Diabetic/heart healthy diet. Pharmacy glycemic orders last admission 05/05/21: * Basal insulin * NPH 25 units SQ given POD#0 x1 and 25 units SQ POD#1 with IV Dexamethasone. * NPH 20 units SQ daily starting POD#2 with IV Dex * Bolus insulin * NovoLog per scale ACHS or Q6hrs while NPO * Goal Range: Low 110 mg/dL - High 140 mg/dL * Correction Factor: 25 mg/dL/unit * Nutritional / Prandial insulin per carb ratio of 1 unit per 8 grams CHO consumed (4) Hypertriglyceridemia: Plan: - Continue atorvastatin daily. (5) Severe obstructive sleep apnea: Plan: - Wears BIPAP at night, patient to use home BIPAP machine. (6) BPH (benign prostatic hyperplasia): Plan: - Continue home flomax. Plan: - Admitted med/surg - SCDs for DVT ppx. - Full Code. Admission and Anticipated Discharge Date Admission Date: July 13, 2021 Subjective Back pain is controlled denies any leg pain. Review of Systems Review of Systems: Constitutional: No fever/chills, weakness, fatigue, myalgias, anorexia, night sweats Eyes: No diplopia, no worsening or blurred vision ENT: normal hearing, no trouble swallowing Respiratory: No cough, sputum, dyspnea at rest or on exertion Cardiovascular: No chest pain, tightness or palpitations Abdomen: No pain, nausea, vomiting, diarrhea or constipation : Denies dysuria, hematuria, increased urgency/frequency, urinary retention Musculoskeletal: No joint pain, calf pain, swelling Neurologic: reports mild b/l LE tingling; No weakness, numbness, or balance problems Psychiatric: No anxiety or depression Skin: No rash or itch Physical Exam Physical Exam: Patient is sitting up in bed. He is comfortable. Discussed pain to testing. ENMT: Mouth: no TMJ abnormality Mallampati Class: II Neck: normal visual inspection Respiratory: normal respiratory effort Auscultation: lungs clear to auscultation bilaterally Cardiovascular: Rate/Rhythm: regular rate and regular rhythm Neurologic: moves all extremities Psychiatric: Orientation: alert and oriented x 3 Results & Data Results & Data ([facility]) Vital Signs (Past 12 Hours) Vital Signs Temp Pulse Resp BP Pulse Ox 07/14/21 16:29 37 C 73 16 125/78 96 07/14/21 11:00 37 C 73 16 121/75 94 07/14/21 07:37 36.9 C 72 16 135/90 93 PG Care Time/CCT Total # of Minutes Spent Total Time Spent with Patient: Total time spent is greater than 50% in coordination of care (as documented) at patient's floor/unit and/or counseling patient: Coding Level of Care Code 80617 Subseq Hosp Care Lvl 2 Diagnoses Lumbar back pain M54.5 Primary hypertension I10 Type 2 diabetes mellitus with hyperglycemia, without long-term current use of insulin E11.65 Hypertriglyceridemia E78.1 Severe obstructive sleep apnea G47.33 BPH (benign prostatic hyperplasia) N40.1; R35.1 Lower urinary tract symptom presence: symptoms present Lower urinary tract symptom detail: nocturia (1) BPH (benign prostatic hyperplasia) Lower urinary tract symptom presence: symptoms present Lower urinary tract symptom detail: nocturia Qualified Code(s): N40.1 - Benign prostatic hyperplasia with lower urinary tract symptoms; R35.1 - Nocturia
[2021-07-14] MEDS: DOCUSATE SODIUM/SENNA 50/8.6MG TAB PO SCH (21:35)
[2021-07-15] MEDS: POLYETHYLENE (MIRALAX) 17 GM PACK PO SCH ×3 (05:13→13:29)
--- NOTE | 2021-07-15 08:58 | Orthopedic Progress Note ---
Date of Service July 15, 2021 Assessment & Plan (1) Neurogenic claudication due to lumbar spinal stenosis: Plan: This time continue physical therapy monitor his SHANE output anticipate discharge home tomorrow. Admission and Anticipated Discharge Date Admission Date: July 13, 2021 Subjective Back pain controlled leg pain improved Physical Exam Physical Exam: Patient is in the chair at the bedside. Appears comfortable. Is good strength testing. Results & Data ([facility]) Vital Signs (Past 12 Hours) Vital Signs Temp Pulse Resp BP BP Pulse Ox 07/15/21 07:34 37 C 66 16 129/79 98 07/14/21 21:52 37.1 C 72 18 133/75 98
[2021-07-15] MEDS: hydroCHLOROthiazide 25 MG TAB PO SCH (09:05)
[2021-07-15] MEDS: metFORMIN HCL 500 MG TAB PO SCH ×2 (09:06→17:43)
[2021-07-15] MEDS: TAMSULOSIN HCL 0.4 MG CAP PO SCH (09:06)
[2021-07-15] MEDS: ATORVASTATIN 20 MG TAB PO SCH (09:06)
[2021-07-15] MEDS: oxyCODONE HCL IR 5 MG TAB (IMMEDIATE RELEASE) PO PRN ×3 (09:06→17:44)
[2021-07-15] MEDS: IRBESARTAN 150 MG TAB PO SCH (09:06)
[2021-07-15] MEDS: INSULIN ASPART PER UNIT SC SCH ×4 (09:08→20:42)
--- NOTE | 2021-07-15 14:02 | Pharmacy Report ---
Pharmacy Glycemic Short Note 2 - Date of Service July 15, 2021 - Glycemic Short BSG Results (Last 24 hours): 07/14/21 07/14/21 07/15/21 17:12 20:59 08:06 POC Glucose 135 H 145 H 114 H 07/15/21 12:10 POC Glucose 120 H OUTPATIENT ANTIDIABETIC REGIMEN: * Empagliflozin 25 mg qAM, metformin 500 mg BID, liraglutide SQ daily * A1c = 6.8% (04/21/21) ASSESSMENT: 07/15: * BSGs well controlled over last 24 hrs * Patient has been tolerating diet, renal fxn assessed yesterday and metformin was resumed * Fasting BSG at goal with no basal insulin on board * Post-prandial BSGs well controlled with current Novolog CF and CR. Will lessen prandial insulin dose a little today given effects of liraglutide likely on board due to administration on 07/12, plus the addition of metformin yesterday may also lessen insulin needs with repeat dosing. 07/14/21: * Max received 24 units of SQ bolus insulin yesterday with excellent glycemic control: 111, 119, 113, 125, 124 mg/dL * Fasting BSG is at goal without basal insulin on board. * He is tolerating an oral diet and renal function is at baseline, therefore, metformin may be resumed. Will loosen NovoLog parameters. 07/13/21: * Max is a 71 yo T2DM admitted for lumbar surgery * Excellent BSG control thus far. Patient may have received dexamethasone 4 mg IV juan-op (removed from [facility], not documented on). I have entered a one time dose of NPH for coverage of possible steroid induced hyperglycemia (to be given with dinner only if BSG is 150 mg/dL or more). * Will utilize weight + stress of2-3 for novolog parameters for POD #0 PLAN FOR INPATIENT GLYCEMIC CONTROL: * Continue metformin 500 mg PO BID * Basal insulin - none * Bolus insulin * NovoLog per scale ACHS or Q6hrs while NPO * Goal Range: Low 110 mg/dL - High 140 mg/dL * Correction Factor: 25 mg/dL/unit * Nutritional / Prandial insulin per carb ratio of 1 unit per 10 grams CHO consumed
[2021-07-15] MEDS: DOCUSATE SODIUM/SENNA 50/8.6MG TAB PO SCH (19:34)
[2021-07-16] MEDS: TAMSULOSIN HCL 0.4 MG CAP PO SCH (08:08)
[2021-07-16] MEDS: hydroCHLOROthiazide 25 MG TAB PO SCH (08:08)
[2021-07-16] MEDS: metFORMIN HCL 500 MG TAB PO SCH (08:08)
[2021-07-16] MEDS: IRBESARTAN 150 MG TAB PO SCH (08:08)
[2021-07-16] MEDS: ATORVASTATIN 20 MG TAB PO SCH (08:08)
[2021-07-16] MEDS: oxyCODONE HCL IR 5 MG TAB (IMMEDIATE RELEASE) PO PRN ×2 (08:08→13:12)
[2021-07-16] MEDS: INSULIN ASPART PER UNIT SC SCH ×2 (08:14→13:11)
--- NOTE | 2021-07-16 11:04 | Pharmacy Report ---
Pharmacy Glycemic Short Note 2 - Date of Service July 16, 2021 - Glycemic Short BSG Results (Last 24 hours): 07/15/21 07/15/21 07/15/21 12:10 17:15 20:40 POC Glucose 120 H 118 H 136 H 07/16/21 08:07 POC Glucose 167 H OUTPATIENT ANTIDIABETIC REGIMEN: * Empagliflozin 25 mg qAM, metformin 500 mg BID, liraglutide SQ daily * A1c = 6.8% (04/21/21) ASSESSMENT: 07/16: * Patient received total 20 units of insulin yesterday, all of which was bolus insulin. * Continues on oral Metformin 500 mg BID. * All BSGs within goal yesterday. Today fasting BSG = 167 mg/dl. * Continued Novolog parameters and Metformin the same as yesterday. 07/15: * BSGs well controlled over last 24 hrs * Patient has been tolerating diet, renal fxn assessed yesterday and metformin was resumed * Fasting BSG at goal with no basal insulin on board * Post-prandial BSGs well controlled with current Novolog CF and CR. Will lessen prandial insulin dose a little today given effects of liraglutide likely on board due to administration on 07/12, plus the addition of metformin yesterday may also lessen insulin needs with repeat dosing. 07/14/21: * Max received 24 units of SQ bolus insulin yesterday with excellent glycemic control: 111, 119, 113, 125, 124 mg/dL * Fasting BSG is at goal without basal insulin on board. * He is tolerating an oral diet and renal function is at baseline, therefore, metformin may be resumed. Will loosen NovoLog parameters. 07/13/21: * aMx is a 71 yo T2DM admitted for lumbar surgery * Excellent BSG control thus far. Patient may have received dexamethasone 4 mg IV juan-op (removed from [facility], not documented on). I have entered a one time dose of NPH for coverage of possible steroid induced hyperglycemia (to be given with dinner only if BSG is 150 mg/dL or more). * Will utilize weight + stress of2-3 for novolog parameters for POD #0 PLAN FOR INPATIENT GLYCEMIC CONTROL: * Continue metformin 500 mg PO BID * Basal insulin - none * Bolus insulin * NovoLog per scale ACHS or Q6hrs while NPO * Goal Range: Low 110 mg/dL - High 140 mg/dL * Correction Factor: 25 mg/dL/unit * Nutritional / Prandial insulin per carb ratio of 1 unit per 10 grams CHO consumed
--- NOTE | 2021-07-16 11:39 | Hospitalist Progress Note ---
Date of Service July 16, 2021 Assessment & Plan (1) Lumbar back pain: Plan: -S/P L3-S1 hardware removal and revision, EBL 650 cc, pod#3 -SHANE drain still remains in place, removal at Dr. Torres's discretion -Pt restarted on aspirin 325 mg post operatively for DVT ppx, as well as SCDs -Initially having some constipation post op but now moving his bowels w/o issue (2) Primary hypertension: Plan: - BP meds resumed, tolerating w/o issue, BP well controlled (3) Type 2 diabetes mellitus with hyperglycemia, without long-term current use of insulin: Plan: - Hold home oral diabetic meds. - Pharmacy consulted during last admission for hyperglycemic control, they have been consulted by primary team, therefore will defer management to them. - A1c in Apr 2021 --> 6.8. - Diabetic/heart healthy diet. - Can resume diabetic meds that he was prescribed prior to hospitalization upon discharge (4) Hypertriglyceridemia: Plan: - Continue atorvastatin daily. (5) Severe obstructive sleep apnea: Plan: - Wears BIPAP at night, patient to use home BIPAP machine. (6) BPH (benign prostatic hyperplasia): Plan: - Continue home flomax. Plan: No additional recommendations at this time, he is felt to be medically stable for discharge, therefore medicine will sign off. Thank you for allowing us to participate in the care of your patient. Plan to be d/w attending. Admission and Anticipated Discharge Date Admission Date: July 13, 2021 Subjective Patient seen on rounds this morning. He has no complaints/concerns. He is pod#3 L3-S1 fusion with iliac bolts by Dr. Torres. He reports back pain is well controlled. Denies n/v/d, f/c, headache, chest pain or dyspnea. He is reportedly being discharged this afternoon. He has no questions at this time. Review of Systems Review of Systems: All systems reviewed and are unremarkable except as noted in HPI and below. Denies fever, chills, fatigue, headache, nasal congestion, sore throat, cough, chest pain, shortness of breath, palpitations, orthopnea, PND, abdominal pain, n/v/d, constipation, dysuria, hematuria, frequency, back pain, joint pain or swelling, easy bruising or bleeding, skin lesions or rashes. Physical Exam Physical Exam: GENERAL: 71 yo Well-developed, well-nourished WM. NAD. LUNGS: Clear to auscultation bilaterally. No W/R/R. CARDIOVASCULAR: Regular rate and rhythm. ABDOMEN: Soft, non-tender and non-distended. BS normoactive x 4 quad. EXTREMITIES: No edema. Non-tender. Peripheral pulses +2/4. NEUROLOGIC: A&O x3. No focal neurological deficits. CN II-XII grossly intact. PSYCHIATRIC: Cooperative. Appropriate mood and affect. SKIN: Warm, dry, intact. No rashes or lesions. Back incision dressed. SHANE drain visualized. Results & Data Results & Data ([facility]) Vital Signs (Past 12 Hours) Vital Signs Temp Pulse Resp BP Pulse Ox 07/16/21 07:40 37 C 70 16 130/83 98 PG Care Time/CCT Total # of Minutes Spent Total Time Spent with Patient: Total time spent is greater than 50% in coordination of care (as documented) at patient's floor/unit and/or counseling patient: Coding Level of Care Code 76057 Subseq Hosp Care Lvl 2 Diagnoses Lumbar back pain M54.5 Primary hypertension I10 Type 2 diabetes mellitus with hyperglycemia, without long-term current use of i nsulin E11.65 Hypertriglyceridemia E78.1 Severe obstructive sleep apnea G47.33 BPH (benign prostatic hyperplasia) N40.1; R35.1 Lower urinary tract symptom presence: symptoms present Lower urinary tract symptom detail: nocturia (1) BPH (benign prostatic hyperplasia) Lower urinary tract symptom presence: symptoms present Lower urinary tract symptom detail: nocturia Qualified Code(s): N40.1 - Benign prostatic hyperplasia with lower urinary tract symptoms; R35.1 - Nocturia
--- NOTE | 2021-07-16 13:16 | Discharge Summary ---
Date of Service July 16, 2021 Admission HPI Per Admitting Provider This is a 71-year-old male that presents postoperatively with fracture of instrumentation is here for surgical revision Principal Diagnosis Lumbar spinal stenosis with failed hardware Discharge Data Allergies Allergy/AdvReac Type Severity Reaction Status Date / Time ketamine AdvReac Intermediate anger Verified 07/13/21 06:29 issues Consultations 07/13/21 11:24 Consult Hospitalist Routine Procedures Performed Operation Date: 07/13/21 07:45 Actual Procedures p L3-S1 Fusion with Iliac Bolts(Not Applicable) - Herman Torres DO s L3-S1 Hardware Removal(Not Applicable) - Herman Torres DO Ordered Studies 07/13/21 07:45 FL lumbar spine 2-3V Routine Hospital Course (1) Neurogenic claudication due to lumbar spinal stenosis: Patient underwent revision decompression and fusion tolerated this well was taken to orthopedic floor postoperatively. Postop day 1 he was up and ambulating progressed to postop day 2. Pain well controlled. Excellent strength testing. SHANE drain decreasing bili. Subsequently discharged home. Discharge orders instructions from the chart for further review. Total Time Total Time Spent Total Time Spent (In Minutes): 20 minutes Discharge Plan Discharge Items Patient Disposition: Home - Self-Care Reason For Visit: Lumbar Spine Pain Discharge Diagnosis: Broken lumbar hardware Activity: As commented below Non-emergency contact: Primary Care Provider Call non-emergency contact if: you have any medication questions Follow-up/Referrals: Fara Youssef MD [Primary Care Provider] - Diet: Regular Addtl Attending Provider Instructions: ACTIVITY RECOMMENDATIONS: SELF CARE INSTRUCTIONS AFTER THORACIC/LUMBAR FUSIONS 1. You may walk to your tolerance. It is good exercise for your legs and back. Expect some back and intermittent leg aches and pains. 2. You may perform "counter-top" level activities (make a sandwich, cecil with a project, etc.). 3. No bending or lifting of more than 10 pounds or back twisting of any nature (roll like a log when turning in bed). 4. You may ride in a car for 20-30 minutes at a time. No driving until after your first visit with your doctor. 5. Frequent changes of position and restricting sitting to 30 minutes at a time will help limit the amount of back spasms and stiffness you may experience. 6. You may discontinue the use of ambulatory aids (cane, crutches, etc.) once your strength and confidence allow. 7. You may insurance representative the shower and let water strike your incision when you arrive home at least once daily. Do not take a tub bath, sit in a hot tub or go into a swimming pool until after your first recheck in the office. SPECIAL CARE INSTRUCTIONS: VERY IMPORTANT TO READ AND REVIEW A. Your surgical incision has been closed with a cosmetic suture under the skin that will dissolve in about 6 weeks. In 14 days, you can use a pair of clean scissors and cut the suture that is left outside of the skin at the ends of your incision. 1. The small skin tapes can be removed 7 days after surgery if they have not fallen off by that point. 2. You may keep the wound open to air as much as possible to promote healing after post-op day number 5 unless told otherwise by your doctor. 3. If you think the wound looks like it is becoming infected (redness or worsening drainage) and/or you are experiencing fever, chill or worsening back pain and muscle spasms, contact the office so that we may evaluate you as soon as possible. B. Complications are uncommon, but please contact us if you have any signs or symptoms of: 1. wound infection (fever higher than 102.5 degrees F, redness, separation of wound, drainage, or increasing pain from the incision) 2. blood clots in legs (pain, swelling, redness and warmth in legs) 3. urinary tract infection (fever higher than 102.5 degrees F, burning upon urination or increased frequency of urination) 4. nerve problems (inability to walk on your toes or heels, numbness, loss of bowel or bladder control) 5. any other symptoms that concern you C. Please call the office at if you have any concerns or questions about your operation or recovery. D. No smoking! Smoking drastically decreases the chance of a solid fusion. E. Do not take any anti-inflammatory medications (Indocin, Advil, Motrin, Aspirin, Naprosyn, etc.) as these may inhibit the chance of a solid fusion. Tylenol is okay to take for pain. MANAGING PAIN AFTER SPINAL SURGERY 1. Narcotic medication is intended for short-term use and will be provided for surgical pain. Surgical pain usually lasts for a period of 4-6 weeks. Narcotic medication includes Percocet, Vicodin, Darvocet, Tylenol #3 or Lortab. 2. Longer-term pain is more appropriately treated with non-narcotic medication such as Tylenol ES. 3. Muscle spasm is not appropriately treated with narcotics. Muscle relaxers such as Soma, Flexeril or Skelaxin can be used along with Tylenol ES. 4. Remember that we all live with some "aches and pains". This is not unusual or uncommon after an injury or as we get older. a. Back pain is expected and may include muscle spasms for 4 to 6 weeks after surgery. The pain should gradually improve. If the pain worsens for no apparent reason, please contact the office. b. Intermittent leg pain may also be experienced and should not be concerned about unless it worsens for no apparent reason. If so, please contact the office. 5. We will provide appropriate medication within the normal guidelines of their prescribed use. We will also be very cautious and aware of potential abuse and extended duration of patients' medication needs. a. Pain medications are for your comfort and to assist with sleep and rest so that the tissue can heal. They are not provided in order to return to normal activity and should not be used through the day. To do so or worsening pain at night can result from ongoing tissue damage and development of tolerance to the prescribed medicine. 6. Please allow 2-3 days to process refills. Prescriptions will not be mailed but must be picked up at the office. FOLLOW UP VISIT: Keep your scheduled follow-up appointment. Any questions, please call the office at . Pending Studies at Discharge: No Stand-Alone Forms: [facility], Smoking Cessation Medications and DC Order Prescriptions: New tramadol 50 mg tablet 50 mg PO Q6H PRN (Reason: pain, moderate) Qty: 30 RF: 0 oxycodone 5 mg tablet 5 mg PO Q6H PRN (Reason: pain, severe) Qty: 30 RF: 0 Continued (DME) OneTouch Verio test strips Strip See Rx Instructions .Route Qty: 100 RF: 0 (DME) lancets [OneTouch Delica Lancets] 33 gauge misc See Rx Instructions .Route Qty: 100 RF: 0 liraglutide 0.6 mg/0.1 mL (18 mg/3 mL) pen injector See Rx Instructions subcut .COMPLEX Qty: 9 RF: 3 (DME) pen needle, diabetic [Novofine 32] 32 gauge x 1/4" needle See Rx Instructions .ROUTE .MEDSUPPLY Qty: 100 RF: 0 atorvastatin 20 mg tablet 20 mg PO QAM RF: 0 meloxicam 15 mg tablet 15 mg PO QAM RF: 0 tamsulosin 0.4 mg capsule 0.4 mg PO QAM RF: 0 hydrochlorothiazide 25 mg tablet 25 mg PO QAM RF: 0 irbesartan 300 mg tablet 300 mg PO QAM RF: 0 oxycodone 5 mg tablet 5 mg PO Q6H PRN (Reason: pain, severe) Qty: 30 RF: 0 metformin 500 mg tablet extended release 24 hr 500 mg PO BID RF: 0 Jardiance 25 mg Tablet 25 mg PO QAM RF: 0 Discharge Orders: Discharge Order (Routine); Ordered 07/16/21 Ordered By: Herman Torres Admission Data Admit Date/Time: 07/13/21 10:24 Attending Provider: Herman Torres Admit Provider: Herman Torres Primary Care Provider: Fara Youssef Other Providers: Trevon Turner ; Greg Raphael
== END 2021-07-16 14:54 | disposition home or self-care (01) | DRG 460 ==
LOC: ASU 06:21 → 3E 10:24

== ENCOUNTER 2024-10-02 05:32 | Observation (INO) ==
--- NOTE | 2024-09-17 12:09 | PAT Medication Instructions ---
Medication Instructions Date of Service September 17, 2024 Home Medications Medication Instructions Recorded tirzepatide 7.5 mg/0.5 mL 7.5 mg (0.5 mL) subcut Q7D #6 mL 05/29/24 subcutaneous pen injector (Mounjaro) atorvastatin 20 mg tablet 20 mg PO QAM #90 tabs 07/19/24 empagliflozin 25 mg tablet 25 mg PO QAM #90 tabs 07/19/24 (Jardiance) hydrochlorothiazide 25 mg tablet 25 mg PO QAM #90 tabs 07/19/24 irbesartan 300 mg tablet 300 mg PO QAM #90 tabs 07/19/24 meloxicam 15 mg tablet 15 mg PO QAM #90 tabs 07/19/24 metformin 500 mg tablet,extended 1,000 mg (2 x 500 mg) PO BID #360 07/19/24 release 24 hr tabs tamsulosin 0.4 mg capsule 0.4 mg PO QAM #90 caps 07/19/24 tramadol 50 mg tablet 50 mg PO DAILY PRN breakthrough 07/19/24 back pain #30 tabs Medication List: tirzepatide 7.5 mg/0.5 mL subcutaneous pen injector (Mounjaro) 7.5 mg (0.5 mL) subcut Q7D atorvastatin 20 mg tablet 20 mg PO QAM empagliflozin 25 mg tablet (Jardiance) 25 mg PO QAM hydrochlorothiazide 25 mg tablet 25 mg PO QAM irbesartan 300 mg tablet 300 mg PO QAM meloxicam 15 mg tablet 15 mg PO QAM metformin 500 mg tablet,extended release 24 hr 1,000 mg (2 x 500 mg) PO BID tamsulosin 0.4 mg capsule 0.4 mg PO QAM tramadol 50 mg tablet 50 mg PO DAILY PRN breakthrough back pain amlodipine 5 mg tablet 5 mg PO QAM duloxetine 60 mg capsule,delayed release 60 mg PO QAM mecobalamin (vitamin B12) 1,000 mcg chewable tablet 1,000 mcg PO QAM MEDICATION INSTRUCTIONS: ASK your surgeon for instructions meloxicam 15 mg tablet 15 mg PO QAM DO NOT take the morning of surgery mecobalamin (vitamin B12) 1,000 mcg chewable tablet 1,000 mcg PO QAM hydrochlorothiazide 25 mg tablet 25 mg PO QAM irbesartan 300 mg tablet 300 mg PO QAM metformin 500 mg tablet,extended release 24 hr 1,000 mg (2 x 500 mg) PO BID Take morning of surgery With a small sip of water, OTHERWISE NOTHING TO EAT OR DRINK AFTER MIDNIGHT: tamsulosin 0.4 mg capsule 0.4 mg PO QAM atorvastatin 20 mg tablet 20 mg PO QAM tramadol 50 mg tablet 50 mg PO DAILY PRN breakthrough back pain amlodipine 5 mg tablet 5 mg PO QAM duloxetine 60 mg capsule,delayed release 60 mg PO QAM Take evening before surgery metformin 500 mg tablet,extended release 24 hr 1,000 mg (2 x 500 mg) PO BID Other Notes As discussed via RN phone call, last dose on 09/22/24 of: tirzepatide 7.5 mg/0.5 mL subcutaneous pen injector (Mounjaro) 7.5 mg (0.5 mL) subcut Q7D STOP taking 3 days before surgery: empagliflozin 25 mg tablet (Jardiance) 25 mg PO QAM If you have any questions please call us at [phone] or [phone] or [phone] or [phone]
--- NOTE | 2024-09-25 14:06 | Anesthesiology Consultation ---
Date of Service September 25, 2024 Assessment & Plan (1) Encounter for pre-operative examination: - Check BSG DOS - Infectious disease screening: Per assessment on 09/25/24- No known recent infectious disease contacts or current infectious disease symptoms. - Outpatient joint assessment: Pt currently scheduled for inpatient pathway. If surgeon requests review for outpatient joint pathway, patient is an acceptable candidate for outpatient joint program from anesthesia standpoint pending surgeon's office assessment that patient is motivated, has good support and completes [facility] preop requirements. - GLP-1 medication instructions: Patient informed by PAT to stop 7 days prior to surgery- voiced understanding. DOS 10/02. Advised last dose to be 09/22. - Patient acceptable risk for surgery pending surgeon-ordered PCP preop evaluation ([facility], appt 09/27). Chart Review Chart Review: Patient seen in Pre Admission Testing Teaching & Discussion Pre-Anesthesia Teaching/Discussion Notes: Instructed NPO after midnight before surgery,except medications with 15 cc of water. Medication instructions provided according to the PAT guidelines. History Surgery Operation Date: 10/02/24 10:15 Proposed Procedures p Right Total Shoulder Arthroplasty Reverse - Chip Slaughter MD Height/Weight Height: 5 ft 10 in Weight: 114.2 kg Allergies Allergy/AdvReac Type Severity Reaction Status Date / Time ketamine AdvReac Intermediate Hallucinations, Verified 09/19/24 13:49 "Anger issues" Medications Home Medications Medication Instructions Recorded Confirmed Last Taken tirzepatide 7.5 mg/0.5 mL 7.5 mg (0.5 mL) subcut Q7D #6 mL 05/29/24 09/17/24 Unknown subcutaneous pen injector (Mounjaro) atorvastatin 20 mg tablet 20 mg PO QAM #90 tabs 07/19/24 09/17/24 Unknown empagliflozin 25 mg tablet 25 mg PO QAM #90 tabs 07/19/24 09/17/24 Unknown (Jardiance) hydrochlorothiazide 25 mg tablet 25 mg PO QAM #90 tabs 07/19/24 09/17/24 Unknown irbesartan 300 mg tablet 300 mg PO QAM #90 tabs 07/19/24 09/17/24 Unknown meloxicam 15 mg tablet 15 mg PO QAM #90 tabs 07/19/24 09/17/24 Unknown metformin 500 mg tablet,extended 1,000 mg (2 x 500 mg) PO BID #360 07/19/24 09/17/24 Unknown release 24 hr tabs tamsulosin 0.4 mg capsule 0.4 mg PO QAM #90 caps 07/19/24 09/17/24 Unknown tramadol 50 mg tablet 50 mg PO DAILY PRN breakthrough 07/19/24 09/17/24 Unknown back pain #30 tabs amlodipine 5 mg tablet 5 mg PO QAM 09/17/24 09/17/24 Unknown duloxetine 60 mg capsule,delayed 60 mg PO QAM 09/17/24 09/17/24 Unknown release mecobalamin (vitamin B12) 1,000 1,000 mcg PO QAM 09/17/24 09/17/24 Unknown mcg chewable tablet Past Medical History Medical History (Updated 09/25/24 @ 14:10 by Sejal Whaley) Acrochordon Adenomatous polyp of colon BPH (benign prostatic hyperplasia) Diabetes mellitus, type 2 Hyperlipidemia Hypertension Nocturnal hypoxemia Per records Osteoarthritis Piezogenic pedal papule Sleep apnea BIPAP (compliant) Exercise / Class Metabolic Activity II 4-5 Yardwork/Stairs/Walk up hill (one FS: No CP, no SOB) Past Family History Family History Sister Lung cancer Other No family history of adverse response to anesthesia Denies family history of Ovarian cancer Prostate cancer Breast cancer Colorectal cancer Past Surgical History Surgical History (Updated 09/19/24 @ 13:49 by Sejal Whaley) H/O elbow surgery right H/O hernia repair H/O shoulder surgery right/left History of colonoscopy History of lumbar fusion Fusion/screws > revision L3-S1 hardware removal, L3-S1 fusion with iliac bolts (07/13/21): DL x2 > Success with Glidescope #4, ETT 8.0 at [facility] History of tonsillectomy History of tooth extraction History of total knee replacement right/left History of uvulopalatopharyngoplasty "surgery for sleep apnea" Status post cervical spinal fusion "a while ago" ? levels (good rom) Past Anesthesia History No Family Hx of Anesthesia Complications and Other (Ketamine reaction after cervical fusion) History of PONV No Hx of PONV and No Hx of Motion Sickness Social History Smoking Status: Current some day smoker tobacco type: cigars (currently- occasionally ) Do You Dip or Chew Tobacco: No Smoking End Date: quit cigarettes many years ago>still smokes cigars occas Hx Alcohol Use: Yes Alcohol type: beer and hard liquor alcohol intake frequency: a few times a week Hx Substance Use: Yes substance use type: marijuana (No recent use) Review of Systems Patient denies chest pain, shortness of breath, dyspnea on exertion, fever, chills, cough, wheezing. Physical Exam Vital Signs BP 142/75 P 77 TEMP 98.8 SP02 96%RA RESP 18 Physical Full cervical extension range of motion. Full TMJ range of motion. TMD > 3.5 finger breaths Mallampati Score III Dentition: intact, + several implants (sides/upper front) Lungs: clear throughout to auscultation Cardiac: regular rate and rhythm, no murmurs noted Spine: normal Carotid arteries: negative bruit Extremities: no LE edema Lab Results Anesthesia Preop Results Results Anesthesia Widget: WBC 8.50 K/ul (4.8-10.8) 09/25/24 Hgb 15.3 g/dl (14.0-18.0) 09/25/24 Hct 43.8 % (42.0-52.0) 09/25/24 Plt 227 K/uL (130-400) 09/25/24 Na 137 mmol/L (136-145) 09/25/24 K 3.7 mmol/L (3.5-5.1) 09/25/24 Cl 104 mmol/L (98-107) 09/25/24 CO2 23 mmol/L (21-32) 09/25/24 BUN 17 mg/dl (6-23) 09/25/24 Creat 0.76 mg/dl (0.6-1.4) 09/25/24 Glucose Level 105 mg/dl (70-99(Fasting)) H 09/25/24 PT 10.9 Seconds (9.0-12.0) 09/25/24 PTT 27 Seconds (21-31) 09/25/24 INR 1.0 (0.9-1.1) 09/25/24 HA1c 5.7 % (4.5-5.6) H 09/25/24 Urine Color Yellow 09/25/24 Urine Appearance Clear (Clear) 09/25/24 Urine pH 5.5 (4.5-7.5) 09/25/24 Urine Specific [place] 1.031 (1.000-1.030) H 09/25/24 Urine Protein Negative (Negative) 09/25/24 Urine Glucose (UA) 3+ (Negative) H 09/25/24 Urine Ketones Negative (Negative) 09/25/24 Urine Blood Negative (Negative) 09/25/24 Urine Nitrite Negative (Negative) 09/25/24 Urine Bilirubin Negative (Negative) 09/25/24 Urine Urobilinogen Negative (Negative) 09/25/24 Urine Leukocyte Esterase Negative (Negative) 09/25/24 Blood Type AB Positive 09/25/24 Antibody Screen NEGATIVE 09/25/24 Testing Electrocardiogram Date: 06/14/24 NSR at 83bpm. "Normal ECG" Chest X-Ray Date: 09/25/24 FINDINGS: Heart size and pulmonary vasculature are normal. No consolidation or pleural effusion. Stable mild scoliosis. IMPRESSION: No acute findings. Stress Test Date: 07/17/24 Negative exercise stress echo/ecg for ischemia at 87% MPHR. 7.00 METS. Baseline Echo with normal LV function. EF 55-60%. Grade I DD. Mild LAD. Borderline RVE. No significant valvular disease.
--- NOTE | 2024-10-01 19:33 | History & Physical Report ---
Date of Service October 01, 2024 Assessment & Plan (1) Osteoarthritis of right glenohumeral joint: Plan: End-stage glenohumeral osteoarthritis right shoulder grade 4. Review of his operative findings years ago demonstrate he had a previous large rotator cuff repair and he had significant rotator cuff tendinopathy partial tearing of the subscapularis years ago. With the reality that he has chronic rotator cuff tendinopathy best option for pain relief and better function over the long run would be to proceed straight to a reverse total shoulder replacement in this situation. Risks including infection loosening instability decreased internal rotation had the back are all discussed as well as perioperative fractures all its potential complications. (2) Tendinopathy of right rotator cuff: History of Present Illness Chief Complaint: Chronic pain dysfunction bilateral shoulders right greater than left Primary Care Provider: Fara Luu MD 74-year-old male with chronic right greater than left shoulder pain status post arthroscopic rotator cuff repair right shoulder 2011 and arthroscopic rotator cuff repair left shoulder 1999. Patient has more weakness in left shoulder than right but has more grinding and catching and limitations with his right shoulder and more pain right shoulder than left. Patient still maintains have reasonably good active range of motion. Radiographs demonstrate grade 4 end-stage glenohumeral osteoarthritis in the right shoulder and [place] stage III rotator cuff arthropathy left shoulder [id number] subacromial space. Patient denies headaches, sweats, fevers, chills, double vision, blurred vision, cough, sore throat, dysphagia, chest pain, sob, wheezing, n/v/d/c, numbness, tingling, fatigue, urinary symptoms, mood disorders. ROS positive for hypertension, sleep apnea, use of BiPAP, numbness extremities, diabetes, insulin treatment, arthritis of the spine. Allergies Allergy/AdvReac Type Severity Reaction Status Date / Time ketamine AdvReac Intermediate Hallucinations, Verified 09/27/24 11:54 "Anger issues" Home Medications Medication Instructions Recorded Confirmed Type tirzepatide 7.5 mg/0.5 mL 7.5 mg (0.5 mL) subcut Q7D #6 mL 05/29/24 09/27/24 Rx subcutaneous pen injector (Radhamesunvane) atorvastatin 20 mg tablet 20 mg PO QAM #90 tabs 07/19/24 09/27/24 Rx empagliflozin 25 mg tablet 25 mg PO QAM #90 tabs 07/19/24 09/27/24 Rx (Jardiance) hydrochlorothiazide 25 mg tablet 25 mg PO QAM #90 tabs 07/19/24 09/27/24 Rx irbesartan 300 mg tablet 300 mg PO QAM #90 tabs 07/19/24 09/27/24 Rx meloxicam 15 mg tablet 15 mg PO QAM #90 tabs 07/19/24 09/27/24 Rx metformin 500 mg tablet,extended 1,000 mg (2 x 500 mg) PO BID #360 07/19/24 09/27/24 Rx release 24 hr tabs tamsulosin 0.4 mg capsule 0.4 mg PO QAM #90 caps 07/19/24 09/27/24 Rx tramadol 50 mg tablet 50 mg PO DAILY PRN breakthrough 07/19/24 09/27/24 Rx back pain #30 tabs amlodipine 5 mg tablet 5 mg PO QAM 09/17/24 09/27/24 History duloxetine 60 mg capsule,delayed 60 mg PO QAM 09/17/24 09/27/24 History release mecobalamin (vitamin B12) 1,000 1,000 mcg PO QAM 09/17/24 09/27/24 History mcg chewable tablet Past Med/Surg History Problem List (Updated 10/01/24 @ 19:31 by Chip Slaughter MD) Tendinopathy of right rotator cuff Osteoarthritis of right glenohumeral joint Sacroiliitis 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 Neurogenic claudication due to lumbar spinal stenosis Severe obstructive sleep apnea Metabolic syndrome Primary hypertension BPH (benign prostatic hyperplasia) History of colon polyps Encounter for pre-operative examination Hypertriglyceridemia (Chronic) Osteoarthritis (Chronic) Medical History Nocturnal hypoxemia Per records Osteoarthritis BPH (benign prostatic hyperplasia) Diabetes mellitus, type 2 Hypertension Hyperlipidemia Sleep apnea BIPAP (compliant) Piezogenic pedal papule Acrochordon Adenomatous polyp of colon Surgical History History of lumbar fusion Fusion/screws > revision L3-S1 hardware removal, L3-S1 fusion with iliac bolts (07/13/21): DL x2 > Success with Glidescope #4, ETT 8.0 at [facility] History of tooth extraction History of uvulopalatopharyngoplasty "surgery for sleep apnea" Status post cervical spinal fusion "a while ago" ? levels (good rom) H/O elbow surgery right History of total knee replacement right/left History of colonoscopy History of tonsillectomy H/O shoulder surgery right/left H/O hernia repair Family History Sister Lung cancer Other No family history of adverse response to anesthesia Denies family history of Ovarian cancer Prostate cancer Breast cancer Colorectal cancer Social History Smoking Status: Current some day smoker Tobacco Type: Cigarettes and Cigars Age Started Using Tobacco: 27; Age Quit Using Tobacco: 33; packs per day: 0.5; Smoking End Date: quit cigarettes many years ago>still smokes cigars occas; Second Hand Exposure: No; Do You Dip or Chew Tobacco: No; Hx Alcohol Use: Yes Alcohol type: beer and hard liquor Hx Substance Use: Yes Preferred Language: Kenyan Communication Ability: Effective 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 Beliefs That Will Affect Care: None marital status: Current Living Situation: Spouse current occupational status: retired Feels Safe at Home: Yes Safety Concerns: Feels Safe At This Time Dental Care, Regularly: Yes Physical Activity Frequency: 1-2 Times per Week Seatbelt Use: always Sunscreen Use: No Assistive Devices: BiPap and Glasses Review of Systems All systems reviewed & are unremarkable except as noted in HPI & below Physical Exam Constitutional: WD/WN, vitals as above Respiratory: normal respiratory effort; no respiratory distress Cardiovascular: Rate/Rhythm: regular rate and regular rhythm Musculoskeletal: Right shoulder has good range of motion abnormal rhythm old surgical scars substantial crepitation with range of motion anterior glenoid tenderness normal strength. Left shoulder has similar good range of motion but weakness with external rotation and abduction weakness 3-/5/3+ to 4-/5 respectively. Neurovascular exam intact. Skin: no rashes, warm and dry Neurologic: normal touch/pain/proprioception Psychiatric: A+Ox3, euthymic affect Results & Data Diagnostic Findings Radiographs right shoulder end-stage grade 4 glenohumeral osteoarthritis.
[2024-10-02] MEDS: CeleBREX 200 MG CAP PO SCH (05:56)
[2024-10-02] MEDS: ACETAMINOPHEN 500 MG TAB PO SCH ×2 (05:56→14:17)
[2024-10-02] MEDS: GABAPENTIN 300 MG CAP PO SCH (05:56)
[2024-10-02] MEDS: LR 60ML/HR IV SCH (05:56)
[2024-10-02] MEDS: FAMOTIDINE 20 MG TAB PO SCH (05:56)
[2024-10-02] MEDS: LR 15ML/HR IV SCH (05:56)
[2024-10-02] MEDS: METOCLOPRAMIDE HCL 10 MG TABLET PO SCH (05:56)
[2024-10-02] MEDS ORDERED: ONDANSETRON INJ 2 MG/ML 2 ML VIAL IV PRN ×2 (06:25→10:48)
[2024-10-02] MEDS ORDERED: HYDROmorphone INJ 1 MG/ML SYRINGE IV PRN (06:25)
[2024-10-02] MEDS ORDERED: ATROPINE SULFATE 0.1 MG/ML 10ML SYR IV PRN (06:25)
[2024-10-02] MEDS ORDERED: BUPIVACAINE 0.5 % 5 MG/1 ML PF 10ML VIAL ONE (06:33)
[2024-10-02] MEDS ORDERED: ONDANSETRON INJ 2 MG/ML 2 ML VIAL ONE (06:53)
[2024-10-02] MEDS ORDERED: GLYCOPYRROLATE 0.2 MG/ML VIAL ONE (06:53)
[2024-10-02] MEDS ORDERED: LIDOCAINE 2% 2 ML VIAL/AMP(20MG/ML) INFIL ONE (06:53)
[2024-10-02] MEDS ORDERED: ROCURONIUM BROMIDE 10 MG/ML 5 ML VIAL IV ONE (06:53)
[2024-10-02] MEDS ORDERED: DEXAMETHASONE SOD INJ 4 MG/ML VIAL ONE (06:53)
[2024-10-02] MEDS ORDERED: PROPOFOL IV EMULSION 10 MG/ML 20 ML VIAL IV ONE (06:53)
[2024-10-02] MEDS ORDERED: MIDAZOLAM HCL 1 MG/ML 2ML VIAL ONE (06:54)
[2024-10-02] MEDS ORDERED: SUGAMMADEX SODIUM 200 MG/2 ML VIAL IV ONE (06:54)
--- NOTE | 2024-10-02 07:02 | History & Physical Bridge Note ---
Date of Service October 02, 2024 History & Physical Bridge Note I have examined the patient, reviewed the History & Physical and in the interval since the performance of the History & Physical I have noted the following changes of clinical significance: no changes noted
[2024-10-02] MEDS: TRANEXAMIC ACID 1,000 MG **IV Pre-op IV SCH (07:07)
--- NOTE | 2024-10-02 10:40 | Post Operative Brief Note ---
Immediate Post Op Note Date of Surgery October 02, 2024 Pre & Post Diagnosis Operation Date: 10/02/24 07:15 Preoperative diagnosis: Osteoarthritis right shoulder glenohumeral joint and chronic rotator cuff tendinopathy status post prior rotator cuff repair Postoperative diagnosis: Osteoarthritis right shoulder glenohumeral joint with chronic rotator cuff tear, absent long head biceps tendon, rotator cuff tendinopathy with supraspinatus tear and partial tearing subscapularis. I identified the patient and participated in the time-out.: Yes Procedure Operation Date: 10/02/24 07:15 Right reverse total shoulder arthroplasty with excisional debridement suture anchors and suture material Surgeon Chip Slaughter MD [place] none Estimated Blood Loss 300 Findings Consistent with Post-Op Diagnosis Specimens Humeral head bone Drains Hemovac Drain Anesthesia Type General Regional Complications none Disposition Disposition: Recovery Room Overlapping Procedure I was immediately available: during the entire case.
[2024-10-02] MEDS ORDERED: MAGNESIUM HYDROXIDE SUSP 30 ML UDC PO PRN (10:48)
[2024-10-02] MEDS ORDERED: ALUMINUM/MAGNESIUM SUSP 30 ML UDC PO PRN (10:48)
[2024-10-02] MEDS ORDERED: NALOXONE HCL 0.4 MG/1 ML VIAL/CARP IV PRN (10:48)
[2024-10-02] MEDS ORDERED: diphenhydrAMINE Capsule 25 MG CAP PO PRN (10:48)
--- NOTE | 2024-10-02 11:20 | XRay Report ---
XR shoulder RT min 2V routine CLINICAL HISTORY: Post shoulder surgery COMPARISON: 06/14/2024 FINDINGS: Right shoulder prosthesis shows no hardware complication. There is expected soft tissue ga s. Skin david are present. Postoperative drain is present. IMPRESSION: Unremarkable postoperative exam. ACT 112: Negative or not required by law. Electronically signed by: Randall Thomas M.D. 10/02/2024 11:19 AM
[2024-10-02 11:27] LABS: Hematocrit (blood only) 39.6 % (42.0-52.0); Hemoglobin 13.3 g/dl (14.0-18.0); Immature Granulocytes # (auto) 0.04 K/uL (0.01-0.20); Immature Granulocytes % (auto) 0.5 %; Mean Corpuscular Hemoglobin 31.0 pg (25.0-34.0); Mean Corpuscular Volume 92.3 fL (80.0-100.0); Platelet Count 183 K/uL (130-400); RDW Standard Deviation 44.9 fL (36.4-46.3); Red Blood Count 4.29 M/uL (4.70-6.10); White Blood Count 8.80 K/ul (4.8-10.8)
[2024-10-02 11:38] LABS: Anion Gap 6.0 (3-11); Blood Urea Nitrogen 14.0 mg/dl (6-23); Calcium 8.9 mg/dl (8.6-10.3); Carbon Dioxide 25.0 mmol/L (21-32); Chloride 108.0 mmol/L (98-107); Creatinine Clr Calc Pharmacy 118.4 ml/min; Glucose 130.0 mg/dl (70-99(Fasting)); Potassium 4.6 mmol/L (3.5-5.1); Sodium 139.0 mmol/L (136-145)
[2024-10-02] MEDS: KETOROLAC TROMETHAMINE 15 MG/ML VIAL IV SCH (14:18)
[2024-10-02] MEDS: BUPIVACAINE LIPOSOME 1.3% 133 MG/10 ML VIAL ONE (14:54)
--- NOTE | 2024-10-02 15:19 | Anesthesiology Progress Note ---
Date of Service October 02, 2024 Anesthesia Post Procedure Vital Signs Vital Signs: Temp Pulse Pulse Resp BP Pulse Ox O2 Del Method 10/02/24 14:34 91 H 18 148/82 H 96 Room Air 10/02/24 13:52 36.7 C 83 17 145/87 H 96 Room Air 10/02/24 13:24 36.3 C L 81 20 141/89 H 98 Nasal Cannula 10/02/24 13:00 69 17 134/75 97 Nasal Cannula 10/02/24 12:30 77 14 146/83 H 94 Nasal Cannula 10/02/24 12:00 71 17 134/74 96 Nasal Cannula 10/02/24 11:45 72 15 148/86 H 92 Nasal Cannula 10/02/24 11:30 61 16 134/76 96 Nasal Cannula 10/02/24 11:20 63 20 151/95 H 98 Nasal Cannula 10/02/24 11:10 36.4 C L 64 14 149/93 H 98 Nasal Cannula 10/02/24 11:00 64 18 160/96 H 95 Oxymask 10/02/24 10:55 151/91 H 10/02/24 10:50 68 19 160/99 H 97 Oxymask 10/02/24 10:40 74 19 165/91 H 100 Oxymask 10/02/24 10:30 36.2 C L 69 12 168/105 H 94 Oxymask 10/02/24 05:45 36.8 C 72 18 143/78 H 97 Room Air O2 Flow Rate 10/02/24 14:34 10/02/24 13:52 10/02/24 13:24 2 10/02/24 13:00 2 10/02/24 12:30 2 10/02/24 12:00 2 10/02/24 11:45 2 10/02/24 11:30 2 10/02/24 11:20 2 10/02/24 11:10 3 10/02/24 11:00 3 10/02/24 10:55 10/02/24 10:50 5 10/02/24 10:40 9 10/02/24 10:30 9 10/02/24 05:45 Transfer of Care Handoff Completed per policy Notes Mental Status: alert / awake / arousable and participated in evaluation Patient Amnestic to Procedure: Yes Nausea / Vomiting: adequately controlled Pain: adequately controlled Airway Patency, RR, SpO2: stable & adequate BP & HR: stable & adequate Hydration State: stable & adequate Anesthetic Complications: no major complications apparent and Pt Satisfied with anesthetic care
[2024-10-02] MEDS ORDERED: PHARMACY GLYCEMIC MGMT CONSULT PRN (15:21)
--- NOTE | 2024-10-02 15:28 | Hospitalist Consultation ---
Date of Consultation October 02, 2024 Assessment & Plan (1) Osteoarthritis of right glenohumeral joint: -POD#0 from right reverse total shoulder arthroplasty -tramadol prn -f/u as per orthopedics (2) Type 2 diabetes mellitus with obesity: -pharmacy consulted for glycemic management -empagliflozin (3) Primary hypertension: -HCTZ -irbesartan -amlodipine (4) BPH (benign prostatic hyperplasia): -tamsulosin (5) Hypertriglyceridemia: -atorvastatin History of Present Illness Reason for Consultation: Post op medical management Attending Physician: Chip Slaughter MD History of Present Illness Pt is a 74 y/o male with pmh of DM, HTN, BPH, HLD, OA, who presents post op from right reverse total shoulder arthroplasty. Pt resting comfortably in bed with right arm sling. His pain is under control and he denies any chest pain or SOB. Will continue to follow for medical management at this time. Allergies Allergy/AdvReac Type Severity Reaction Status Date / Time ketamine AdvReac Intermediate Hallucinations, Verified 10/02/24 05:46 "Anger issues" Home Medications Medication Instructions Recorded Confirmed Type tirzepatide 7.5 mg/0.5 mL 7.5 mg (0.5 mL) subcut Q7D #6 mL 05/29/24 10/02/24 Rx subcutaneous pen injector (Mounjaro) atorvastatin 20 mg tablet 20 mg PO QAM #90 tabs 07/19/24 10/02/24 Rx empagliflozin 25 mg tablet 25 mg PO QAM #90 tabs 07/19/24 10/02/24 Rx (Jardiance) hydrochlorothiazide 25 mg tablet 25 mg PO QAM #90 tabs 07/19/24 10/02/24 Rx irbesartan 300 mg tablet 300 mg PO QAM #90 tabs 07/19/24 10/02/24 Rx meloxicam 15 mg tablet 15 mg PO QAM #90 tabs 07/19/24 10/02/24 Rx metformin 500 mg tablet,extended 1,000 mg (2 x 500 mg) PO BID #360 07/19/24 10/02/24 Rx release 24 hr tabs tamsulosin 0.4 mg capsule 0.4 mg PO QAM #90 caps 07/19/24 10/02/24 Rx tramadol 50 mg tablet 50 mg PO DAILY PRN breakthrough 07/19/24 10/02/24 Rx back pain #30 tabs amlodipine 5 mg tablet 5 mg PO QAM 09/17/24 10/02/24 History duloxetine 60 mg capsule,delayed 60 mg PO QAM 09/17/24 10/02/24 History release mecobalamin (vitamin B12) 1,000 1,000 mcg PO QAM 09/17/24 10/02/24 History mcg chewable tablet Patient History Medical History Nocturnal hypoxemia Per records Osteoarthritis BPH (benign prostatic hyperplasia) Diabetes mellitus, type 2 Hypertension Hyperlipidemia Sleep apnea BIPAP (compliant) Piezogenic pedal papule Acrochordon Adenomatous polyp of colon Surgical History History of lumbar fusion Fusion/screws > revision L3-S1 hardware removal, L3-S1 fusion with iliac bolts (07/13/21): DL x2 > Success with Glidescope #4, ETT 8.0 at [facility] History of tooth extraction History of uvulopalatopharyngoplasty "surgery for sleep apnea" Status post cervical spinal fusion "a while ago" ? levels (good rom) H/O elbow surgery right History of total knee replacement right/left History of colonoscopy History of tonsillectomy H/O shoulder surgery right/left H/O hernia repair Family History Sister Lung cancer Other No family history of adverse response to anesthesia Denies family history of Ovarian cancer Prostate cancer Breast cancer Colorectal cancer Social History Smoking Status: Current some day smoker Tobacco Type: Cigarettes and Cigars Age Started Using Tobacco: 27; Age Quit Using Tobacco: 33; packs per day: 0.5; Smoking End Date: quit cigarettes many years ago>still smokes cigars occas; Second Hand Exposure: No; Do You Dip or Chew Tobacco: No; Hx Alcohol Use: Yes Alcohol type: beer and hard liquor Hx Substance Use: Yes Preferred Language: Greek Communication Ability: Effective 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 HENT: Negative for neck pain/stiffness, headache, congestion, sore throat, swelling. EYES: Negative for discharge/pain or vision changes. RESP: Negative for cough/hemoptysis and shortness of breath. CV: Negative chest pain, difficulty breathing, palpitations. ABD: Negative pain, nausea, vomiting. : Negative increase frequency, dysuria, blood in urine or stool. MUSC: Negative for muscle aches, edema. Right should soreness SKIN: Negative rash, lesions/sores. NEURO: Negative headache, dizziness, weakness. Physical Exam Physical Exam: GENERAL APPEARANCE NAD, activity normal for age, well developed/ well nourished, no cyanosis, pallor, or diaphoresis. EYES lids/conjunctiva normal. EARS/NOSE/THROAT Mucous membranes moist, nares normal, lips/teeth normal uvula midline without oral pharyngeal erythema, exudate or swelling TMs normal bilaterally. No lymphangitis/lymphedema. HEAD/NECK normocephalic atraumatic, no facial trauma, neck is supple. RESPIRATORY respiratory effort normal, speaks in full sentences, no tripod position, no accessory muscle use. Lungs clear to auscultation without rhonchi, wheezes, rales CARDIAC Regular rate and rhythm, no edema. ABDOMINAL Soft, ND/NT. No evidence of fluid wave. No pulsatile masses on exam, rebound tenderness, Fernández sign or pain over Mcburney's point. MUSCLES/EXTREMITIES No abnormal range of motion, no swelling. SKIN Warm, pink and dry. No rashes, dermatoses, petechiae or lesions. NEUROLOGICAL Speech is clear and appropriate. Normal level of consciousness. Gait and coordination are normal. 5/5 strength in all extremities. PSYCH Normal mood and affect. Judgement/competence is appropriate Results & Data Results & Data Vital Signs (Past 12 Hours) Vital Signs Temp Pulse Pulse Resp BP Pulse Ox O2 Del Method 10/02/24 14:34 91 H 18 148/82 H 96 Room Air 10/02/24 13:52 36.7 C 83 17 145/87 H 96 Room Air 10/02/24 13:24 36.3 C L 81 20 141/89 H 98 Nasal Cannula 10/02/24 13:00 69 17 134/75 97 Nasal Cannula 10/02/24 12:30 77 14 146/83 H 94 Nasal Cannula 10/02/24 12:00 71 17 134/74 96 Nasal Cannula 10/02/24 11:45 72 15 148/86 H 92 Nasal Cannula 10/02/24 11:30 61 16 134/76 96 Nasal Cannula 10/02/24 11:20 63 20 151/95 H 98 Nasal Cannula 10/02/24 11:10 36.4 C L 64 14 149/93 H 98 Nasal Cannula 10/02/24 11:00 64 18 160/96 H 95 Oxymask 10/02/24 10:55 151/91 H 10/02/24 10:50 68 19 160/99 H 97 Oxymask 10/02/24 10:40 74 19 165/91 H 100 Oxymask 10/02/24 10:30 36.2 C L 69 12 168/105 H 94 Oxymask 10/02/24 05:45 36.8 C 72 18 143/78 H 97 Room Air O2 Flow Rate 10/02/24 14:34 10/02/24 13:52 10/02/24 13:24 2 10/02/24 13:00 2 10/02/24 12:30 2 10/02/24 12:00 2 10/02/24 11:45 2 10/02/24 11:30 2 10/02/24 11:20 2 10/02/24 11:10 3 10/02/24 11:00 3 10/02/24 10:55 10/02/24 10:50 5 10/02/24 10:40 9 10/02/24 10:30 9 10/02/24 05:45 PG Care Time/CCT Total # of Minutes Spent Total Time Spent with Patient: Total time spent is greater than 50% in coordination of care (as documented) at patient's floor/unit and/or counseling patient: Coding Level of Care Code 70973 IN/OBS CONSULT LVL 3,45M Diagnoses Osteoarthritis of right glenohumeral joint M19.011 Type 2 diabetes mellitus with obesity E11.69; E66.9 Primary hypertension I10 Benign prostatic hyperplasia with nocturia N40.1; R35.1 Lower urinary tract symptom detail: nocturia Lower urinary tract symptom presence: symptoms present Hypertriglyceridemia E78.1 (4) BPH (benign prostatic hyperplasia) Lower urinary tract symptom detail: nocturia Lower urinary tract symptom presence: symptoms present Qualified Code(s): N40.1 - Benign prostatic hyperplasia with lower urinary tract symptoms; R35.1 - Nocturia
[2024-10-02] MEDS: SODIUM CHLORIDE 0.9% 1,000 ML IV SCH (15:38)
[2024-10-02] MEDS ORDERED: GLUCOSE 10 TAB/TUBE PO PRN (15:45)
[2024-10-02] MEDS ORDERED: DEXTROSE 50% 50 ML SYRINGE IV PRN (15:45)
[2024-10-02] MEDS ORDERED: CARBOHYDRATES FOR HYPOGLYCEMIA PO PRN (15:45)
[2024-10-02] MEDS ORDERED: GLUCAGON FOR INJ 1 MG VIAL SQ PRN (15:45)
[2024-10-02] MEDS ORDERED: GLUCOSE 40% GEL 15 GM TUBE PO PRN (15:45)
[2024-10-02] MEDS: FERROUS GLUCONATE 324 MG TAB PO SCH (15:58)
[2024-10-02] MEDS: INSULIN ASPART PER UNIT CHARGE SC SCH (16:56)
--- NOTE | 2024-10-02 18:12 | Operative Report ---
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 I identified the patient and participated in the time-out.: Yes Procedure Operation Date: 10/02/24 07:15 Actual Procedures p Right Reverse Total Shoulder Arthroplasty(Right), excisional debridement suture anchors and suture material with bone grafting defects with humeral head autograft.- Chip Slaughter MD Surgeon Chip Slaughter MD [employer] Disc [employer] none Estimated Blood Loss 300 Findings Consistent with Post-Op Diagnosis Specimens Humeral head bone Drains 2 Hemovac Anesthesia Type General Regional Complications none Disposition Disposition: Recovery Room Indications 74-year-old male with progressive osteoarthritis right shoulder years later after a rotator cuff repair in 2011. Patient did well for many years but recently having more more pain and disability. Radiographs demonstrate he is clearly [id number] with some slight posterior subluxation and more posterior wear of the glenoid. Radiographic evidence of prior decompression type surgery and rotator cuff repair surgery Description of Procedure The patient was taken to the operating room and anesthetized under regional block and general anesthetic. The patient was positioned on the operating table in a 30 beach chair position with a towel roll under the medial border of the right scapula. The arm was draped free to be able to manipulate the shoulder as needed. The right upper extremity was prepped and draped in usual sterile fashion. Exam demonstrated good passive range of motion with glenohumeral crepitation and moderate obesity. An anterior deltopectoral approach was performed. A longitudinal incision was made in the deltopectoral interval. The skin was incised sharply. Subcutaneous flaps were elevated off the fascia. The cephalic vein was dissected out and retracted lateral with the deltoid. The clavipectoral fascia was divided at the lateral margin of the conjoined tendon and extended up to the CA ligament. The following findings were noted the upper third of the subscapularis had partial tearing and there was some hypertrophied scar tissue under the upper subscapularis causing it to bulge out anteriorly. There was tearing of the supraspinatus off the greater tuberosity there is intact attachment of the infraspinatus and teres minor.. The upper centimeter of the pectoralis was released for inferior exposure. A self-retaining retractor was placed. The biceps tendon findings demonstrated absent biceps tendon. The subscapularis muscle fibers were split longitudinally at the level of the circumflex vessels. The circumflex vessels were identified and tied off with silk ties and divided laterally. A Kitner elevator was used to free up the inferior fibers of the subscapularis off of the capsule. The axillary nerve was identified with a tug test and protected with a blunt Umesh retractor between the nerve and the capsule. The subscapularis tendon was then taken down off of the lesser tuberosity subperiosteally, a Vicryl traction suture was placed and a subperiosteal dissection was performed along the neck of the humerus as the arm was gradually externally rotated exposing the humeral head. The humeral head findings demonstrated grade 4 arthritic wear with minimal articular cartilage remaining on humeral head with moderate-sized inferior osteophytes extending from anterior to posterior. retractors were readjusted and the inferior osteophytes were all resected using an artist chisel. A Abdullahi elevator was used to assist in releasing the capsule of the neck of the humerus. The capsule was divided with Medina scissors down to the glenoid released off the anterior glenoid and the rotator interval was released to meet the capsular release and a 360 release of the subscapularis was accomplished. A Fukuda retractor was placed into the joint retracting the humeral head posterior. Glenoid findings demonstrated eburnated bone with some more posterior inferior wear pattern on the glenoid some residual intact articular cartilage at the anteriormost aspect of the glenoid with fairly large anterior glenoid osteophyte small inferior glenoid osteophytes.. The degenerative labrum was resected. an anterior-inferior and posterior inferior capsular release were performed with electrocautery and a Abdullahi elevator on bone with the axillary nerve protected inferiorly by the retractor. Attention was then taken to the humeral preparation. The cutting guide was placed into the humeral head. It was positioned at 20 of retroversion. Oscillating saw was used to resect the humeral head giving the cut above the level of the posterior rotator cuff insertion site. The humerus was then prepared for the stem. First had to remove old suture material and suture anchors that were in the humeral head. One of the anchors was within the head cut piece. Removal of the anchors did leave some defects in the bone in the greater tuberosity area. I used the ascend flex stem from [employer]. The sizing broaches were used followed by trial broaches up to a size 5B long which had the appropriate fit and fill. The appropriate sized cut protector was placed. The humerus was then retracted posterior to the glenoid. The glenoid was sized for a 29 mm baseplate. The guide for the baseplate was positioned in a 10 inferior tilt and the central drill hole was made. The reamer for the 29 baseplate was used. The central drill was widened for the peg. The aequalis 29 mm hydroxyapatite coated standard post baseplate was impacted into position. There was an excellent tight press-fit. The base plate was transfixed with superior and inferior locking screws and anterior and posterior compression screws with stable fixation. The fan reamer was used for the 42 millimeter glenoid sphere. After irrigation the 42 mm centered glenoid sphere was impacted onto the baseplate and the security screw was tightened. Attention was taken back to the humerus. The cut protector was removed and the +0 high offset humeral tray trial was assembled to the trial stem rotated appropriately to get bony coverage and then screwed in position. A trial reduction was performed. A + 9/42 flex reversed trial insert demonstrated good stability and no shuck. The trials were removed. 3 drill holes are made into the harder bone in the bicipital groove area and 3 #5 FiberWire sutures were placed transosseously. The canal was irrigated with antibiotic solution with bacitracin. The final component was assembled. The final component was 5 the long stem assembled 2+ high offset tray with a 42 mm / +9 mm flex reversed polyethylene insert. The defects in the humerus were bone grafted with cancellous bone that was removed from the humeral head cut fragment. The assembled humeral stem implant was then impacted into the humerus with a tight press-fit. It was reduced to the glenoid sphere. Stability was ve rified. Subscapularis was repaired with the #5 FiberWire sutures using Celestino- Stevo suture technique. Lateral row soft tissue repair was performed with #2 FiberWire [id number] sutures. The pectoralis was repaired with #2 FiberWire [id number] sutures . The arm was taken through a range of motion which demonstrated 150 degrees flexion 100 degrees abduction 70 degrees external rotation. The implant was stable through the range of motion tested. The wound was copiously irrigated. 2 Hemovac drains were placed. The deltopectoral interval was closed with [id number] #1 Vicryl sutures. The subcutaneous tissues were closed with 2-0 Vicryl sutures. The skin was closed with surgical david. A Silverlon sterile dressing and drain sponge dressing were applied and a shoulder immobilizer. It was noted that there was more than typical bleeding throughout the entire procedure in this particular patient which did require some more time for the procedure and cauterization of multiple bleeders during the procedure. This did occur despite giving TXA preop and intraoperatively at closure. I attest to the content of the Intraoperative Record and any orders documented therein. Any exceptions are noted below.
[2024-10-02] MEDS: SENNA 8.6 MG TAB PO SCH (21:05)
[2024-10-02] MEDS: DOCUSATE SODIUM 100 MG CAP PO SCH (21:05)
[2024-10-03 06:15] LABS: Hematocrit (blood only) 34.2 % (42.0-52.0); Hemoglobin 11.9 g/dl (14.0-18.0); Immature Granulocytes # (auto) 0.05 K/uL (0.01-0.20); Immature Granulocytes % (auto) 0.4 %; Mean Corpuscular Hemoglobin 31.7 pg (25.0-34.0); Mean Corpuscular Volume 91.2 fL (80.0-100.0); Platelet Count 199 K/uL (130-400); RDW Standard Deviation 43.1 fL (36.4-46.3); Red Blood Count 3.75 M/uL (4.70-6.10); White Blood Count 11.91 K/ul (4.8-10.8)
[2024-10-03 06:34] LABS: Anion Gap 7.0 (3-11); Blood Urea Nitrogen 14.0 mg/dl (6-23); Calcium 8.7 mg/dl (8.6-10.3); Carbon Dioxide 26.0 mmol/L (21-32); Chloride 105.0 mmol/L (98-107); Creatinine Clr Calc Pharmacy 116.8 ml/min; Glucose 136.0 mg/dl (70-99(Fasting)); Potassium 3.6 mmol/L (3.5-5.1); Sodium 138.0 mmol/L (136-145)
--- NOTE | 2024-10-03 07:41 | Orthopedic Progress Note ---
Date of Service October 03, 2024 Assessment & Plan (1) Osteoarthritis of right glenohumeral joint: Plan: Postoperative day 1 reverse shoulder replacement. Satisfactory progress. More than typical bleeding intraoperatively and drainage postop but drainage is decre asing and ready to be discontinued prior to discharge today. Patient will start physical therapy and schedule this as an outpatient. Patient's for oxycodone, cefadroxil , Zofran ,aspirin ,Celebrex ,Tylenol have been sent to pharmacy. Follow-up in 2 weeks for staple removal. Silverlon protocol wound care. End-stage glenohumeral osteoarthritis right shoulder grade 4. Review of his operative findings years ago demonstrate he had a previous large rotator cuff repair and he had significant rotator cuff tendinopathy partial tearing of the subscapularis years ago. With the reality that he has chronic rotator cuff tendinopathy best option for pain relief and better function over the long run would be to proceed straight to a reverse total shoulder replacement in this situation. Risks including infection loosening instability decreased internal rotation had the back are all discussed as well as perioperative fractures all its potential complications. (2) Tendinopathy of right rotator cuff: Admission and Anticipated Discharge Date Admission Date: October 02, 2024 Subjective No complaints doing well Review of Systems Review of Systems: Asymptomatic noncontributory Physical Exam Musculoskeletal: Dressing dry and intact, Hemovac still draining, motor sensory function returning from nerve block with good circulation. Sling appropriately placed. Results & Data Vital Signs (Past 12 Hours) Vital Signs Temp Pulse Resp BP Pulse Ox O2 Del Method 10/03/24 03:33 36.8 C 61 18 143/79 H 96 Room Air 10/02/24 23:05 37.0 C 72 18 133/84 96 Room Air Diagnostic Findings Well aligned reverse shoulder right shoulder
[2024-10-03 07:55] VITALS: BP 147/76; PULSE 68; RESP 17; TEMP 98.4; O2SAT 95
[2024-10-03] MEDS ORDERED: LANTUS PER UNIT CHARGE SC SCH (09:00)
--- NOTE | 2024-10-03 09:07 | Pharmacy Report ---
Pharmacy Glycemic Short Note 2 - Date of Service October 03, 2024 - Glycemic Short BSG Results (Last 24 hours): 10/02/24 10/02/24 10/02/24 10:33 11:07 16:04 Glucose 130 H POC Glucose 102 H 249 H 10/02/24 10/03/24 10/03/24 20:31 05:17 07:53 Glucose 136 H POC Glucose 139 H 150 H OUTPATIENT ANTIDIABETIC REGIMEN: * Jardiance 25mg PO QAM * metformin ER 1000mg BIDM * Mounjaro 7.5mg QWK * HbA1c 5.7% (09/25/24) ASSESSMENT: * Max is a 74 year old male admitted status post right total shoulder arthroplasty. Pharmacy has been consulted to assist with glycemic management while inpatient. * Fasting BSG this AM acceptable, received dexamethasone 10mg IV perioperatively, BSGs william throughout the evening but trended down with NovoLog at a weight based stress of 2. Hyperglycemia likely steroid induced. Will hold any further basal and restart metformin at this time. * Carbohydrate ratio removed, correction factor if BSGs above goal range. PLAN FOR INPATIENT GLYCEMIC CONTROL: * Basal insulin * Hold basal, restart oral metformin in preparation for discharge. * Bolus insulin * NovoLog per scale ACHS or Q6hrs while NPO * Goal Range: Low 110 mg/dL - High 140 mg/dL * Correction Factor: 20 mg/dL/unit * Nutritional / Prandial insulin per carb ratio of 1 unit per NONE grams CHO consumed
[2024-10-03] MEDS: ATORVASTATIN 20 MG TAB PO SCH (09:20)
[2024-10-03] MEDS: TAMSULOSIN HCL 0.4 MG CAP PO SCH (09:20)
[2024-10-03] MEDS: LOSARTAN POTASSIUM 50 MG TAB PO SCH (09:20)
[2024-10-03] MEDS: MULTIVITAMIN TAB PO SCH (09:21)
== END 2024-10-03 11:20 | disposition home or self-care (01) ==
LOC: PACUINP 05:32 → ASU 05:32 → 3E 13:51